=== PATIENT | male | born 1965 | race Caucasian/White ===

== ENCOUNTER → 2019-09-18 | Outpatient (CLI) | payer MEDICARE, SELFPAY | DX: Z48.22 Encounter for aftercare following kidney transplant (principal); Z79.899 Other long term (current) drug therapy | CPT/HCPCS: 36415; 80069; 80197; 81003; 82570; 83735; 84156; 85025; 87497; 87799 ×2 ==

== ENCOUNTER 2019-09-28 09:40 | Outpatient (CLI) | payer MEDICARE, SELFPAY ==
--- NOTE | 2019-09-28 | US_ITS ---
WS: [id number] RIGHT UPPER QUADRANT ULTRASOUND HISTORY: RUQ PAIN COMPARISON: None available. Liver: 15.2 cm in length. Normal size and echogenicity with no intrahepatic dilatation. No mass. Gallbladder: Normally distended gallbladder with no stones or wall thickening. CBD: 3.1 mm Pancreas: Normal size and echogenicity. Right kidney: 7.6 cm in length. Normal echogenicity with no mass or hydronephrosis. Aorta and IVC: Unremarkable. No ascites. US/US abdomen limited [id number] IMPRESSION: Normal RIGHT upper quadrant ultrasound.
== END 2019-09-28 09:41 | disposition home or self-care (01) ==
LOC: RADOUTREAD 11:38
PROVIDERS: Visit Provider Physician Assistant
DX: R10.11 Right upper quadrant pain (principal)

== ENCOUNTER 2019-10-02 08:35 | Outpatient (CLI) | payer MEDICARE, SELFPAY ==
[2019-10-02 09:10] LABS: Basophils % 0.6 %; Eosinophils # 0.1 10^3/uL (0.0-0.8); Eosinophils % 1.1 %; Hematocrit 40.4 % (42.0-52.0); Hemoglobin 13.2 g/dL (11.7-16.6); Lymphocytes # 0.8 10^3/uL (0.8-4.8); Lymphocytes % 10.8 %; Mean Corpuscular HGB Conc 32.7 g/dL (30.0-36.0); Mean Corpuscular Hemoglobin 31.6 pg (28.0-34.0); Mean Corpuscular Volume 96.7 fL (80-94); Mean Platelet Volume 8.9 fL (7.4-10.4); Monocytes % 13.4 %; Neutrophils # 5.1 10^3/uL (1.8-7.7); Neutrophils % 71.7 %; Nucleated Red Blood Cells % 0 %; Platelet Count 306 10^3/cmm (130-400); Red Blood Count 4.18 10^6/uL (4.1-5.3); Red Cell Distribution Width 13.2 % (12.1-15.1); White Blood Count 7.1 10^3/uL (4.0-10.0)
[2019-10-02 09:24] LABS: Albumin Level 4.6 g/dL (3.5-5.2); Anion Gap 14.6 (5-19); Blood Urea Nitrogen 24 mg/dL (6-20); Calcium 10.1 mg/Dl (8.6-10.0); Carbon Dioxide 25 mmol/L (22-29); Chloride 102 mmol/L (98-107); Glucose 96 mg/dL (74-109); Magnesium 1.7 mg/dL (1.7-2.3); Phosphorus 3.1 mg/dL (2.5-4.5); Potassium 4.6 mmol/L (3.5-5.1); Sodium 137 mmol/L (136-145)
== END 2019-10-02 08:36 | disposition home or self-care (01) ==
LOC: LAB 08:40
PROVIDERS: PCP Physician Assistant; Visit Provider Transplant Surgery
DX: Z48.22 Encounter for aftercare following kidney transplant (principal); Z79.899 Other long term (current) drug therapy; Z94.0 Kidney transplant status
CPT/HCPCS: 80069; 80197; 83735; 85025

== ENCOUNTER 2019-10-08 09:57 | Outpatient (CLI) | payer MEDICARE, SELFPAY ==
[2019-10-08 10:20] LABS: Add Urine Microscopic? NO
[2019-10-08 10:23] LABS: Basophils % 0.5 %; Eosinophils # 0.1 10^3/uL (0.0-0.8); Eosinophils % 1.5 %; Hematocrit 42.1 % (42.0-52.0); Hemoglobin 13.9 g/dL (11.7-16.6); Lymphocytes # 0.6 10^3/uL (0.8-4.8); Lymphocytes % 9.7 %; Mean Corpuscular Hemoglobin 32.6 pg (28.0-34.0); Mean Corpuscular Volume 98.8 fL (80-94); Mean Platelet Volume 9.2 fL (7.4-10.4); Monocytes # 0.8 10^3/uL (0.2-0.9); Monocytes % 12.8 %; Neutrophils # 4.7 10^3/uL (1.8-7.7); Neutrophils % 72.4 %; Nucleated Red Blood Cells % 0 %; Platelet Count 295 10^3/cmm (130-400); Red Blood Count 4.26 10^6/uL (4.1-5.3); Red Cell Distribution Width 12.8 % (12.1-15.1); White Blood Count 6.5 10^3/uL (4.0-10.0)
[2019-10-08 11:00] LABS: Bilirubin Urine Neg (NEGATIVE); Blood Urine Neg (Negative); Glucose Urine UA Norm (Normal); Ketones Urine Negative (Negative); Leukocyte Esterase Urine Negative (Negative); Nitrate Urine Negative (Negative); Protein Urine Neg (Negative); Specific Gravity, Urine 1.015 (1.005-1.030); Urine Appearance Clear (CLEAR); Urine Color Yellow (Yellow); Urobilinogen Urine Norm (Negative)
[2019-10-08 11:02] LABS: Albumin Level 4.5 g/dL (3.5-5.2); Anion Gap 13.2 (5-19); Blood Urea Nitrogen 19 mg/dL (6-20); Calcium 10.2 mg/Dl (8.6-10.0); Carbon Dioxide 28 mmol/L (22-29); Chloride 100 mmol/L (98-107); Glucose 90 mg/dL (74-109); Magnesium 1.6 mg/dL (1.7-2.3); Phosphorus 2.7 mg/dL (2.5-4.5); Potassium 4.2 mmol/L (3.5-5.1); Sodium 137 mmol/L (136-145)
[2019-10-08 11:33] LABS: Urine Creatinine 82 mg/dL (39-259); Urine Protein Random 4 mg/dL
[2019-10-08 11:35] LABS: UPRO/UCREAT Ratio 0.05 mg/mg CR
[2019-10-10 13:47] LABS: Cytomegalovirus Antibody (IGG) <0.60 U/mL; Cytomegalovirus Antibody (IGM) <30.00 AU/mL
[2019-10-11 16:57] LABS: Urine BK Virus DNA Quant NO DNA DETECTED copies/mL
== END 2019-10-08 09:58 | disposition home or self-care (01) ==
LOC: LAB 10:03
PROVIDERS: PCP Physician Assistant; Visit Provider Internal Medicine Nephrology
DX: Z48.22 Encounter for aftercare following kidney transplant (principal); Z79.899 Other long term (current) drug therapy
CPT/HCPCS: 36415; 80069; 80197; 81003; 82570; 83735; 84156; 85025; 87799

== ENCOUNTER 2019-10-17 09:13 | Outpatient (CLI) | payer MEDICARE, SELFPAY ==
[2019-10-17 09:45] LABS: Add Urine Microscopic? NO
[2019-10-17 09:46] LABS: Basophils % 0.4 %; Eosinophils # 0.1 10^3/uL (0.0-0.8); Eosinophils % 1.9 %; Hematocrit 40.4 % (42.0-52.0); Hemoglobin 13.2 g/dL (11.7-16.6); Lymphocytes # 0.6 10^3/uL (0.8-4.8); Mean Corpuscular HGB Conc 32.7 g/dL (30.0-36.0); Mean Corpuscular Hemoglobin 31.3 pg (28.0-34.0); Mean Corpuscular Volume 95.7 fL (80-94); Mean Platelet Volume 9.2 fL (7.4-10.4); Monocytes # 0.8 10^3/uL (0.2-0.9); Monocytes % 15.3 %; Neutrophils # 3.6 10^3/uL (1.8-7.7); Neutrophils % 69.9 %; Nucleated Red Blood Cells % 0 %; Platelet Count 302 10^3/cmm (130-400); Red Blood Count 4.22 10^6/uL (4.1-5.3); White Blood Count 5.2 10^3/uL (4.0-10.0)
[2019-10-17 09:57] LABS: Bilirubin Urine Neg (NEGATIVE); Blood Urine Neg (Negative); Glucose Urine UA Norm (Normal); Ketones Urine Negative (Negative); Leukocyte Esterase Urine Negative (Negative); Nitrate Urine Negative (Negative); Protein Urine Neg (Negative); Urine Appearance Clear (CLEAR); Urine Color Colorless (Yellow); Urobilinogen Urine Norm (Negative)
[2019-10-17 10:02] LABS: Albumin Level 4.4 g/dL (3.5-5.2); Anion Gap 13.1 (5-19); Blood Urea Nitrogen 17 mg/dL (6-20); Calcium 9.9 mg/dL (8.5-10.5); Carbon Dioxide 26 mmol/L (22-29); Chloride 101 mmol/L (98-107); Glucose 96 mg/dL (74-109); Magnesium 1.8 mg/dL (1.7-2.3); Phosphorus 2.7 mg/dL (2.5-4.5); Potassium 4.1 mmol/L (3.5-5.1); Sodium 136 mmol/L (136-145)
[2019-10-17 10:08] LABS: Urine Creatinine 32 mg/dL (39-259); Urine Protein Random 4 mg/dL
[2019-10-17 10:17] LABS: UPRO/UCREAT Ratio 0.13 mg/mg CR
[2019-10-20 12:53] LABS: BK VIRUS DNA, QN PCR NO DNA DETECTED copies/mL; SOURCE NOT GIVEN
[2019-10-20 16:27] LABS: Urine BK Virus DNA Quant NO DNA DETECTED copies/mL
[2019-10-21 07:07] LABS: CMV DNA By PCR <200 IU/mL; CMV DNA, QN PCR <2.30 Log IU/mL; SOURCE WHOLE BLOOD
== END 2019-10-17 09:14 | disposition home or self-care (01) ==
LOC: LAB 09:20
PROVIDERS: Family Provider Internal Medicine Nephrology; PCP Physician Assistant; Visit Provider Internal Medicine Nephrology
DX: Z48.22 Encounter for aftercare following kidney transplant (principal); Z79.899 Other long term (current) drug therapy; Z94.0 Kidney transplant status
CPT/HCPCS: 36415; 80069; 80197; 81003; 82570; 83735; 84156; 85025; 87798; 87799

== ENCOUNTER 2019-11-22 08:27 | Outpatient (CLI) | payer MEDICARE, SELFPAY ==
[2019-11-22 09:10] LABS: Add Urine Microscopic? NO
[2019-11-22 09:12] LABS: Bilirubin Urine Neg (NEGATIVE); Blood Urine Neg (Negative); Glucose Urine UA Norm (Normal); Ketones Urine Negative (Negative); Nitrate Urine Negative (Negative); Protein Urine Neg (Negative); Specific Gravity, Urine 1.015 (1.005-1.030); Urine Appearance Clear (CLEAR); Urine Color Yellow (Yellow); pH Urine 5 (5-7)
[2019-11-22 09:13] LABS: Basophils # 0.1 10^3/uL (0.0-0.1); Basophils % 0.9 %; Eosinophils # 0.1 10^3/uL (0.0-0.8); Eosinophils % 1.7 %; Hematocrit 41.9 % (42.0-52.0); Hemoglobin 13.4 g/dL (11.7-16.6); Leukocyte Esterase Urine Negative (Negative); Lymphocytes # 0.7 10^3/uL (0.8-4.8); Lymphocytes % 12.2 %; Mean Corpuscular Hemoglobin 30.5 pg (28.0-34.0); Mean Corpuscular Volume 95.2 fL (80-94); Mean Platelet Volume 9.3 fL (7.4-10.4); Monocytes # 0.8 10^3/uL (0.2-0.9); Monocytes % 13.1 %; Neutrophils # 4.2 10^3/uL (1.8-7.7); Neutrophils % 71.8 %; Nucleated Red Blood Cells % 0 %; Platelet Count 312 10^3/cmm (130-400); Red Cell Distribution Width 11.9 % (12.1-15.1); Urobilinogen Urine Norm (Negative); White Blood Count 5.8 10^3/uL (4.0-10.0)
[2019-11-22 09:27] LABS: Albumin Level 4.2 g/dL (3.5-5.2); Blood Urea Nitrogen 14 mg/dL (6-20); Calcium 9.8 mg/dL (8.5-10.5); Carbon Dioxide 27 mmol/L (22-29); Chloride 101 mmol/L (98-107); Glomerular Filtration Rate 62.9 mL/min (90-130); Glucose 97 mg/dL (65-115); Magnesium 1.7 mg/dL (1.7-2.3); Sodium 137 mmol/L (136-145); Urine Creatinine 85 mg/dL (39-259); Urine Protein Random 4 mg/dL
[2019-11-22 09:29] LABS: UPRO/UCREAT Ratio 0.05 mg/mg CR
[2019-11-24 22:45] LABS: Urine BK Virus DNA Quant NO DNA DETECTED copies/mL
[2019-11-25 06:30] LABS: BK VIRUS DNA, QN PCR NO DNA DETECTED copies/mL; SOURCE WHOLE BLOOD
[2019-11-25 07:25] LABS: CMV DNA By PCR <200 IU/mL; CMV DNA, QN PCR <2.30 Log IU/mL; SOURCE WHOLE BLOOD
== END 2019-11-22 08:28 | disposition home or self-care (01) ==
LOC: LAB 08:41
PROVIDERS: PCP Physician Assistant; Visit Provider Internal Medicine Nephrology
DX: Z48.22 Encounter for aftercare following kidney transplant (principal); Z79.899 Other long term (current) drug therapy; Z94.0 Kidney transplant status
CPT/HCPCS: 36415; 80069; 80197; 81003; 82570; 83735; 84156; 85025; 87798; 87799

== ENCOUNTER 2019-12-10 09:06 | Outpatient (CLI) | payer MEDICARE, SELFPAY ==
[2019-12-10 09:41] LABS: Basophils % 0.6 %; Eosinophils # 0.1 10^3/uL (0.0-0.8); Eosinophils % 1.1 %; Hematocrit 45.5 % (42.0-52.0); Hemoglobin 14.6 g/dL (11.7-16.6); Lymphocytes # 0.8 10^3/uL (0.8-4.8); Lymphocytes % 12.3 %; Mean Corpuscular HGB Conc 32.1 g/dL (30.0-36.0); Mean Corpuscular Hemoglobin 30.7 pg (28.0-34.0); Mean Corpuscular Volume 95.6 fL (80-94); Mean Platelet Volume 9.3 fL (7.4-10.4); Monocytes # 0.8 10^3/uL (0.2-0.9); Monocytes % 12.4 %; Neutrophils # 4.7 10^3/uL (1.8-7.7); Nucleated Red Blood Cells % 0 %; Platelet Count 322 10^3/cmm (130-400); Red Blood Count 4.76 10^6/uL (4.1-5.3); Red Cell Distribution Width 11.6 % (12.1-15.1); White Blood Count 6.4 10^3/uL (4.0-10.0)
[2019-12-10 09:50] LABS: Albumin Level 4.5 g/dL (3.5-5.2); Anion Gap 12.2 (5-19); Blood Urea Nitrogen 21 mg/dL (6-20); Carbon Dioxide 27 mmol/L (22-29); Chloride 101 mmol/L (98-107); Glomerular Filtration Rate 52.6 mL/min (90-130); Glucose 102 mg/dL (65-115); Phosphorus 2.9 mg/dL (2.5-4.5); Potassium 4.2 mmol/L (3.5-5.1); Sodium 136 mmol/L (136-145)
== END 2019-12-10 09:07 | disposition home or self-care (01) ==
LOC: LAB 09:12
PROVIDERS: PCP Physician Assistant; Visit Provider Internal Medicine Nephrology
DX: Z94.0 Kidney transplant status (principal); Z79.899 Other long term (current) drug therapy
CPT/HCPCS: 36415; 80069; 80197; 85025

== ENCOUNTER 2019-12-26 09:17 | Outpatient (CLI) | payer MEDICARE, SELFPAY ==
[2019-12-26 09:46] LABS: Basophils % 0.4 %; Eosinophils # 0.1 10^3/uL (0.0-0.8); Eosinophils % 1.3 %; Hematocrit 42.8 % (42.0-52.0); Hemoglobin 13.8 g/dL (11.7-16.6); Lymphocytes # 0.9 10^3/uL (0.8-4.8); Lymphocytes % 12.6 %; Mean Corpuscular HGB Conc 32.2 g/dL (30.0-36.0); Mean Corpuscular Hemoglobin 31.3 pg (28.0-34.0); Mean Corpuscular Volume 97.1 fL (80-94); Mean Platelet Volume 9.4 fL (7.4-10.4); Monocytes # 0.8 10^3/uL (0.2-0.9); Monocytes % 11.9 %; Neutrophils # 4.9 10^3/uL (1.8-7.7); Neutrophils % 73.2 %; Nucleated Red Blood Cells % 0 %; Platelet Count 302 10^3/cmm (130-400); Red Blood Count 4.41 10^6/uL (4.1-5.3); Red Cell Distribution Width 11.7 % (12.1-15.1); White Blood Count 6.8 10^3/uL (4.0-10.0)
[2019-12-26 09:54] LABS: Bilirubin Urine Neg (NEGATIVE); Blood Urine Neg (Negative); Glucose Urine UA Norm (Normal); Ketones Urine Negative (Negative); Leukocyte Esterase Urine Negative (Negative); Nitrate Urine Negative (Negative); Protein Urine Neg (Negative); RBC Urine RARE /hpf (0-2); Urine Appearance Clear (CLEAR); Urine Color Yellow (Yellow); Urobilinogen Urine Norm (Negative); pH Urine 5 (5-7)
[2019-12-26 09:55] LABS: Add Urine Culture? No; Squamous Epithelial Cell Urine 0-4 (0-5); WBC Urine RARE /hpf (0-5)
[2019-12-26 10:02] LABS: Albumin Level 4.3 g/dL (3.5-5.2); Blood Urea Nitrogen 25 mg/dL (6-20); Calcium 9.6 mg/dL (8.5-10.5); Carbon Dioxide 25 mmol/L (22-29); Chloride 100 mmol/L (98-107); Glomerular Filtration Rate 39.4 mL/min (90-130); Glucose 115 mg/dL (65-115); Magnesium 1.6 mg/dL (1.7-2.3); Phosphorus 3.3 mg/dL (2.5-4.5); Sodium 137 mmol/L (136-145)
[2019-12-26 10:05] LABS: Urine Creatinine 233 mg/dL (39-259); Urine Protein Random 10 mg/dL
[2019-12-26 10:07] LABS: UPRO/UCREAT Ratio 0.04 mg/mg CR
[2019-12-29 15:55] LABS: CMV DNA By PCR <200 IU/mL; CMV DNA, QN PCR <2.30 Log IU/mL; SOURCE WHOLE BLOOD
[2020-01-02 10:31] LABS: BK VIRUS DNA, QN PCR NO DNA DETECTED copies/mL; SOURCE NOT GIVEN
[2020-01-02 14:11] LABS: Urine BK Virus DNA Quant NO DNA DETECTED copies/mL
== END 2019-12-26 09:18 | disposition home or self-care (01) ==
LOC: LAB 09:22
PROVIDERS: PCP Physician Assistant; Visit Provider Internal Medicine Nephrology
DX: Z48.22 Encounter for aftercare following kidney transplant (principal); Z79.899 Other long term (current) drug therapy
CPT/HCPCS: 36415; 80069; 80197; 81001; 82570; 83735; 84156; 85025; 87496; 87798; 87799

== ENCOUNTER 2020-01-25 08:56 | Outpatient (CLI) | payer MEDICARE, SELFPAY ==
[2020-01-25 09:39] LABS: Add Urine Microscopic? NO
[2020-01-25 09:57] LABS: Hematocrit 40.4 % (42.0-52.0); Hemoglobin 13.1 g/dL (11.7-16.6); Mean Corpuscular HGB Conc 32.4 g/dL (30.0-36.0); Mean Corpuscular Volume 95.5 fL (80-94); Mean Platelet Volume 9.3 fL (7.4-10.4); Platelet Count 322 10^3/cmm (130-400); Red Blood Count 4.23 10^6/uL (4.1-5.3); Red Cell Distribution Width 12.2 % (12.1-15.1); White Blood Count 6.8 10^3/uL (4.0-10.0)
[2020-01-25 10:28] LABS: Albumin Level 4.4 g/dL (3.5-5.2); Anion Gap 13.8 (5-19); Blood Urea Nitrogen 18 mg/dL (6-20); Calcium 9.5 mg/dL (8.5-10.5); Carbon Dioxide 27 mmol/L (22-29); Chloride 101 mmol/L (98-107); Glomerular Filtration Rate 48.6 mL/min (90-130); Glucose 100 mg/dL (65-115); Magnesium 1.9 mg/dL (1.7-2.3); Phosphorus 2.5 mg/dL (2.5-4.5); Potassium 3.8 mmol/L (3.5-5.1); Sodium 138 mmol/L (136-145)
[2020-01-25 10:44] LABS: Bilirubin Urine Neg (NEGATIVE); Blood Urine Neg (Negative); Glucose Urine UA Norm (Normal); Ketones Urine Negative (Negative); Leukocyte Esterase Urine Negative (Negative); Nitrate Urine Negative (Negative); Protein Urine Neg (Negative); Urine Appearance Clear (CLEAR); Urine Color Yellow (Yellow); Urobilinogen Urine Norm (Negative); pH Urine 5 (5-7)
[2020-01-25 10:45] LABS: Add Urine Culture? No
[2020-01-25 10:58] LABS: Urine Creatinine 97 mg/dL (39-259); Urine Protein Random 4 mg/dL
[2020-01-25 11:00] LABS: UPRO/UCREAT Ratio 0.04 mg/mg CR
[2020-01-25 12:05] LABS: Absolute Eosinophils 0.1 10^3/cmm (0.0-0.7); Band Neutrophils Absolute 0.7 10^3/cmm (0.0-1.2); Eosinophils 2 %; Lymphocytes 15 %; Monocytes Absolute 0.8 10^3/cmm (0.1-0.6); Platelet Estimate Normal (Normal); Segmented Neutrophils 60 %; Total Cells Counted 100 (0-100)
[2020-02-01 00:50] LABS: BK VIRUS DNA, QN PCR NO DNA DETECTED copies/mL; SOURCE BLOOD
[2020-02-01 02:39] LABS: CMV DNA By PCR <200 IU/mL; CMV DNA, QN PCR <2.30 Log IU/mL; SOURCE BLOOD
[2020-02-01 05:25] LABS: Urine BK Virus DNA Quant NO DNA DETECTED copies/mL
== END 2020-01-25 08:57 | disposition home or self-care (01) ==
LOC: LAB 09:01
PROVIDERS: Visit Provider Internal Medicine Nephrology
DX: Z48.22 Encounter for aftercare following kidney transplant (principal); Z79.899 Other long term (current) drug therapy
CPT/HCPCS: 36415; 80069; 80197; 81001; 81003; 82570; 83735; 84156; 85007; 85027; 87496; 87798; 87799

== ENCOUNTER 2020-02-26 09:29 | Outpatient (CLI) | payer MEDICARE, SELFPAY ==
[2020-02-26 10:17] LABS: Basophils % 0.3 %; Eosinophils # 0.1 10^3/uL (0.0-0.8); Eosinophils % 0.7 %; Hematocrit 38.1 % (42.0-52.0); Hemoglobin 11.9 g/dL (11.7-16.6); Lymphocytes # 0.8 10^3/uL (0.8-4.8); Lymphocytes % 8.1 %; Mean Corpuscular HGB Conc 31.2 g/dL (30.0-36.0); Mean Corpuscular Hemoglobin 29.8 pg (28.0-34.0); Mean Corpuscular Volume 95.3 fL (80-94); Mean Platelet Volume 9.5 fL (7.4-10.4); Monocytes % 10.2 %; Neutrophils # 6.8 10^3/uL (1.8-7.7); Neutrophils % 72.1 %; Nucleated Red Blood Cells % 0 %; Platelet Count 344 10^3/cmm (130-400); Red Cell Distribution Width 12.2 % (12.1-15.1); White Blood Count 9.5 10^3/uL (4.0-10.0)
[2020-02-26 10:26] LABS: Add Urine Culture? No; Bacteria Urine TRACE; Bilirubin Urine Neg (NEGATIVE); Blood Urine Neg (Negative); Glucose Urine UA Norm (Normal); Ketones Urine Negative (Negative); Leukocyte Esterase Urine Negative (Negative); Nitrate Urine Negative (Negative); Protein Urine Neg (Negative); Urine Appearance Clear (CLEAR); Urine Color Straw (Yellow); Urobilinogen Urine Norm (Negative); WBC Urine 0-4 /hpf (0-5); pH Urine 5 (5-7)
[2020-02-26 10:31] LABS: Albumin Level 4.3 g/dL (3.5-5.2); Anion Gap 15.6 (5-19); Blood Urea Nitrogen 26 mg/dL (6-20); Calcium 9.8 mg/dL (8.5-10.5); Carbon Dioxide 25 mmol/L (22-29); Chloride 98 mmol/L (98-107); Glomerular Filtration Rate 48.6 mL/min (90-130); Glucose 99 mg/dL (65-115); Magnesium 1.6 mg/dL (1.7-2.3); Phosphorus 3.2 mg/dL (2.5-4.5); Potassium 3.6 mmol/L (3.5-5.1); Sodium 135 mmol/L (136-145)
[2020-02-26 10:36] LABS: Urine Creatinine 55 mg/dL (39-259); Urine Protein Random 4 mg/dL
[2020-02-26 10:40] LABS: UPRO/UCREAT Ratio 0.07 mg/mg CR
[2020-02-26 11:05] LABS: Slide Review Slide Review Perform
[2020-02-29 08:17] LABS: CMV DNA By PCR <200 IU/mL; CMV DNA, QN PCR <2.30 Log IU/mL; SOURCE NOT GIVEN
[2020-02-29 11:05] LABS: BK VIRUS DNA, QN PCR NO DNA DETECTED copies/mL; SOURCE NOT GIVEN
[2020-03-01 09:41] LABS: Urine BK Virus DNA Quant NO DNA DETECTED copies/mL
== END 2020-02-26 09:30 | disposition home or self-care (01) ==
LOC: LAB 09:33
PROVIDERS: Visit Provider Internal Medicine
DX: Z48.22 Encounter for aftercare following kidney transplant (principal); Z79.899 Other long term (current) drug therapy
CPT/HCPCS: 36415; 80069; 80197; 81001; 82570; 83735; 84156; 85025; 87496; 87798; 87799

== ENCOUNTER 2020-03-12 08:34 | Outpatient (CLI) | payer MEDICARE, SELFPAY ==
[2020-03-12 09:22] LABS: Albumin Level 4.5 g/dL (3.5-5.2); Anion Gap 13.9 (5-19); Blood Urea Nitrogen 19 mg/dL (6-20); Calcium 9.7 mg/dL (8.5-10.5); Carbon Dioxide 27 mmol/L (22-29); Chloride 99 mmol/L (98-107); Glomerular Filtration Rate 62.9 mL/min (90-130); Glucose 103 mg/dL (65-115); Phosphorus 2.7 mg/dL (2.5-4.5); Potassium 3.9 mmol/L (3.5-5.1); Sodium 136 mmol/L (136-145)
== END 2020-03-12 08:35 | disposition home or self-care (01) ==
LOC: LAB 08:41
PROVIDERS: PCP Physician Assistant; Visit Provider Internal Medicine
DX: Z48.22 Encounter for aftercare following kidney transplant (principal); Z79.899 Other long term (current) drug therapy
CPT/HCPCS: 36415; 80069; 80197

== ENCOUNTER 2020-03-26 08:42 | Outpatient (CLI) | payer MEDICARE, SELFPAY ==
[2020-03-26 09:10] LABS: Hematocrit 39.4 % (42.0-52.0); Hemoglobin 12.2 g/dL (11.7-16.6); Mean Corpuscular Hemoglobin 30.5 pg (28.0-34.0); Mean Corpuscular Volume 98.5 fL (80-94); Mean Platelet Volume 9.1 fL (7.4-10.4); Nucleated Red Blood Cells % 0 %; Platelet Count 370 10^3/cmm (130-400); Red Cell Distribution Width 12.5 % (12.1-15.1); White Blood Count 9.2 10^3/uL (4.0-10.0)
[2020-03-26 09:30] LABS: Add Urine Microscopic? NO
[2020-03-26 09:31] LABS: Albumin Level 4.2 g/dL (3.5-5.2); Anion Gap 14.1 (5-19); Blood Urea Nitrogen 18 mg/dL (6-20); Calcium 9.4 mg/dL (8.5-10.5); Carbon Dioxide 24 mmol/L (22-29); Chloride 102 mmol/L (98-107); Glomerular Filtration Rate 69.5 mL/min (90-130); Glucose 95 mg/dL (65-115); Magnesium 1.8 mg/dL (1.7-2.3); Phosphorus 2.6 mg/dL (2.5-4.5); Potassium 4.1 mmol/L (3.5-5.1); Sodium 136 mmol/L (136-145)
[2020-03-26 10:08] LABS: Slide Review Slide Review Perform
[2020-03-26 10:46] LABS: Absolute Neutrophil 7.3 10^3/cmm (1.4-6.5); Band Neutrophils Absolute 3.2 10^3/cmm (0.0-1.2); Eosinophils 1 %; Lymphocytes 9 %; Platelet Estimate Normal (Normal); Segmented Neutrophils 44 %; Total Cells Counted 100 (0-100)
[2020-03-26 10:55] LABS: Urine Appearance Clear (CLEAR); Urine Color Yellow (Yellow)
[2020-03-26 10:56] LABS: Bilirubin Urine Neg (NEGATIVE); Blood Urine Neg (Negative); Glucose Urine UA Norm (Normal); Ketones Urine Negative (Negative); Leukocyte Esterase Urine Negative (Negative); Nitrate Urine Negative (Negative); Protein Urine Neg (Negative); Urobilinogen Urine Norm (Negative); pH Urine 5 (5-7)
[2020-03-26 11:22] LABS: Urine Creatinine 201 mg/dL (39-259); Urine Protein Random 12 mg/dL
[2020-03-26 11:35] LABS: UPRO/UCREAT Ratio 0.06 mg/mg CR
[2020-03-31 23:50] LABS: CMV DNA By PCR <200 IU/mL; CMV DNA, QN PCR <2.30 Log IU/mL; SOURCE PLASMA
[2020-04-01 07:25] LABS: BK VIRUS DNA, QN PCR NO DNA DETECTED copies/mL; SOURCE PLASMA
== END 2020-03-26 08:43 | disposition home or self-care (01) ==
LOC: LAB 08:46
PROVIDERS: PCP Physician Assistant; Visit Provider Internal Medicine
DX: Z48.22 Encounter for aftercare following kidney transplant (principal); Z79.899 Other long term (current) drug therapy
CPT/HCPCS: 36415; 80069; 80197; 81003; 82570; 83735; 84156; 85007; 85025; 87496; 87798

== ENCOUNTER 2020-04-28 09:38 | Outpatient (CLI) | payer MEDICARE, SELFPAY ==
[2020-04-28 10:01] LABS: Add Urine Microscopic? NO
[2020-04-28 10:08] LABS: Basophils % 0.7 %; Eosinophils # 0.1 10^3/uL (0.0-0.8); Eosinophils % 1.2 %; Hemoglobin 13.7 g/dL (11.7-16.6); Lymphocytes # 0.8 10^3/uL (0.8-4.8); Lymphocytes % 13.3 %; Mean Corpuscular HGB Conc 31.1 g/dL (30.0-36.0); Mean Corpuscular Volume 96.5 fL (80-94); Mean Platelet Volume 8.8 fL (7.4-10.4); Monocytes # 0.8 10^3/uL (0.2-0.9); Monocytes % 14.2 %; Neutrophils # 4.02 10^3/uL (1.8-7.7); Neutrophils % 69.7 %; Nucleated Red Blood Cells % 0 %; Platelet Count 314 10^3/cmm (130-400); Red Blood Count 4.56 10^6/uL (4.1-5.3); Red Cell Distribution Width 12.1 % (12.1-15.1); White Blood Count 5.8 10^3/uL (4.0-10.0)
[2020-04-28 10:22] LABS: Albumin Level 4.3 g/dL (3.5-5.2); Anion Gap 11.9 (5-19); Blood Urea Nitrogen 16 mg/dL (6-20); Calcium 8.8 mg/dL (8.5-10.5); Carbon Dioxide 25 mmol/L (22-29); Chloride 105 mmol/L (98-107); Glomerular Filtration Rate 62.9 mL/min (90-130); Glucose 94 mg/dL (65-115); Magnesium 1.7 mg/dL (1.7-2.3); Phosphorus 2.5 mg/dL (2.5-4.5); Potassium 3.9 mmol/L (3.5-5.1); Sodium 138 mmol/L (136-145)
[2020-04-28 10:25] LABS: Blood Urine Neg (Negative); Glucose Urine UA Norm (Normal); Ketones Urine Negative (Negative); Nitrate Urine Negative (Negative); Protein Urine Neg (Negative); Specific Gravity, Urine 1.005 (1.005-1.030); Urine Appearance Clear (CLEAR); Urine Color Straw (Yellow); pH Urine 5 (5-7)
[2020-04-28 10:26] LABS: Bilirubin Urine Neg (NEGATIVE); Leukocyte Esterase Urine Negative (Negative); Urobilinogen Urine Norm (Negative)
[2020-04-30 23:40] LABS: BK VIRUS DNA, QN PCR NO DNA DETECTED copies/mL; SOURCE PLASMA
[2020-05-04 18:00] LABS: CMV DNA By PCR <200 IU/mL; CMV DNA, QN PCR <2.30 Log IU/mL; SOURCE WHOLE BLOOD
== END 2020-04-28 09:39 | disposition home or self-care (01) ==
LOC: LAB 09:42
PROVIDERS: PCP Physician Assistant; Visit Provider Internal Medicine
DX: Z48.22 Encounter for aftercare following kidney transplant (principal); Z79.899 Other long term (current) drug therapy
CPT/HCPCS: 36415; 80069; 80197; 81003; 83735; 85025; 87496; 87798

== ENCOUNTER 2020-05-27 08:09 | Outpatient (CLI) | payer MEDICARE, SELFPAY ==
[2020-05-27 08:40] LABS: Add Urine Microscopic? NO
[2020-05-27 09:07] LABS: Bilirubin Urine Neg (NEGATIVE); Blood Urine Neg (Negative); Glucose Urine UA Norm (Normal); Ketones Urine Negative (Negative); Leukocyte Esterase Urine Negative (Negative); Nitrate Urine Negative (Negative); Protein Urine Neg (Negative); Urine Appearance Clear (CLEAR); Urine Color Yellow (Yellow); Urobilinogen Urine Norm (Negative); pH Urine 5 (5-7)
[2020-05-27 09:08] LABS: Basophils % 0.6 %; Eosinophils # 0.1 10^3/uL (0.0-0.8); Eosinophils % 1.1 %; Hemoglobin 14.1 g/dL (11.7-16.6); Lymphocytes # 0.8 10^3/uL (0.8-4.8); Mean Corpuscular HGB Conc 31.3 g/dL (30.0-36.0); Mean Corpuscular Hemoglobin 29.8 pg (28.0-34.0); Mean Corpuscular Volume 95.1 fL (80-94); Mean Platelet Volume 9.4 fL (7.4-10.4); Monocytes # 0.8 10^3/uL (0.2-0.9); Monocytes % 14.6 %; Neutrophils # 3.76 10^3/uL (1.8-7.7); Neutrophils % 69.5 %; Nucleated Red Blood Cells % 0 %; Platelet Count 322 10^3/cmm (130-400); Red Blood Count 4.73 10^6/uL (4.1-5.3); Red Cell Distribution Width 12.1 % (12.1-15.1); White Blood Count 5.4 10^3/uL (4.0-10.0)
[2020-05-27 09:33] LABS: Urine Creatinine 151 mg/dL (39-259); Urine Protein Random 9 mg/dL
[2020-05-27 09:33] LABS: Albumin Level 4.4 g/dL (3.5-5.2); Anion Gap 13.9 (5-19); Blood Urea Nitrogen 15 mg/dL (6-20); Calcium 9.2 mg/dL (8.5-10.5); Carbon Dioxide 26 mmol/L (22-29); Chloride 101 mmol/L (98-107); Glomerular Filtration Rate 69.2 mL/min (90-130); Glucose 104 mg/dL (65-115); Magnesium 1.7 mg/dL (1.7-2.3); Phosphorus 2.9 mg/dL (2.5-4.5); Potassium 3.9 mmol/L (3.5-5.1); Sodium 137 mmol/L (136-145)
[2020-05-27 09:44] LABS: UPRO/UCREAT Ratio 0.06 mg/mg CR
[2020-05-30 01:03] LABS: BK VIRUS DNA, QN PCR NO DNA DETECTED copies/mL; CMV DNA By PCR <200 IU/mL; CMV DNA, QN PCR <2.30 Log IU/mL; SOURCE WHOLE BLOOD
== END 2020-05-27 08:10 | disposition home or self-care (01) ==
PROVIDERS: PCP Physician Assistant; Visit Provider Internal Medicine
DX: Z48.22 Encounter for aftercare following kidney transplant (principal); Z79.899 Other long term (current) drug therapy
CPT/HCPCS: 80069; 80197; 81003; 82570; 83735; 84156; 85025; 87496; 87798; 87799

== ENCOUNTER 2020-06-05 08:04 | Outpatient (CLI) | payer MEDICARE, SELFPAY ==
[2020-06-05 08:40] LABS: Albumin Level 4.4 g/dL (3.5-5.2); Blood Urea Nitrogen 15 mg/dL (6-20); Calcium 9.6 mg/dL (8.5-10.5); Carbon Dioxide 27 mmol/L (22-29); Chloride 100 mmol/L (98-107); Glomerular Filtration Rate 62.6 mL/min (90-130); Glucose 99 mg/dL (65-115); Sodium 136 mmol/L (136-145)
== END 2020-06-05 08:05 | disposition home or self-care (01) ==
LOC: LAB 08:09
PROVIDERS: PCP Physician Assistant; Visit Provider Internal Medicine Nephrology
DX: Z48.22 Encounter for aftercare following kidney transplant (principal); Z79.899 Other long term (current) drug therapy
CPT/HCPCS: 36415; 80069; 80197

== ENCOUNTER 2020-06-27 09:09 | Outpatient (CLI) | payer MEDICARE, SELFPAY ==
[2020-06-27 09:41] LABS: Add Urine Microscopic? NO
[2020-06-27 09:43] LABS: Basophils % 0.3 %; Eosinophils # 0.1 10^3/uL (0.0-0.8); Eosinophils % 0.9 %; Hematocrit 47.1 % (42.0-52.0); Hemoglobin 14.9 g/dL (11.7-16.6); Lymphocytes # 0.8 10^3/uL (0.8-4.8); Lymphocytes % 9.1 %; Mean Corpuscular HGB Conc 31.6 g/dL (30.0-36.0); Mean Corpuscular Hemoglobin 29.8 pg (28.0-34.0); Mean Corpuscular Volume 94.2 fL (80-94); Mean Platelet Volume 9.3 fL (7.4-10.4); Monocytes % 11.2 %; Neutrophils # 6.77 10^3/uL (1.8-7.7); Neutrophils % 78.3 %; Nucleated Red Blood Cells % 0 %; Platelet Count 341 10^3/cmm (130-400); Red Cell Distribution Width 12.4 % (12.1-15.1); White Blood Count 8.7 10^3/uL (4.0-10.0)
[2020-06-27 09:49] LABS: Bilirubin Urine Neg (Negative); Blood Urine Neg (Negative); Glucose Urine UA Norm (Normal); Ketones Urine Negative (Negative); Leukocyte Esterase Urine Negative (Negative); Nitrate Urine Negative (Negative); Protein Urine Neg (Negative); Urine Appearance Clear (CLEAR); Urine Color Yellow (Yellow); Urobilinogen Urine Norm (Negative); pH Urine 5 (5-7)
[2020-06-27 10:00] LABS: Albumin Level 4.4 g/dL (3.5-5.2); Blood Urea Nitrogen 12 mg/dL (6-20); Calcium 9.4 mg/dL (8.5-10.5); Carbon Dioxide 25 mmol/L (22-29); Chloride 101 mmol/L (98-107); Glomerular Filtration Rate 69.2 mL/min (90-130); Glucose 94 mg/dL (65-115); Magnesium 1.7 mg/dL (1.7-2.3); Phosphorus 2.8 mg/dL (2.5-4.5); Sodium 134 mmol/L (136-145)
[2020-06-27 10:15] LABS: Urine Creatinine 98 mg/dL (39-259); Urine Protein Random 7 mg/dL
[2020-06-27 10:37] LABS: UPRO/UCREAT Ratio 0.07 mg/mg CR
[2020-07-01 17:08] LABS: BK VIRUS DNA, QN PCR NO DNA DETECTED copies/mL; CMV DNA By PCR <200 IU/mL; CMV DNA, QN PCR <2.30 Log IU/mL; SOURCE PLASMA
[2020-07-01 17:38] LABS: Urine BK Virus DNA Quant NO DNA DETECTED copies/mL
== END 2020-06-27 09:10 | disposition home or self-care (01) ==
LOC: LAB 09:14
PROVIDERS: PCP Physician Assistant; Visit Provider Internal Medicine Nephrology
DX: Z48.22 Encounter for aftercare following kidney transplant (principal); Z79.899 Other long term (current) drug therapy
CPT/HCPCS: 36415; 80069; 80197; 81003; 82570; 83735; 84156; 85025; 87496; 87798; 87799

== ENCOUNTER 2020-07-28 08:26 | Outpatient (CLI) | payer MEDICARE, SELFPAY ==
[2020-07-28 09:28] LABS: Add Urine Microscopic? NO
[2020-07-28 09:42] LABS: Basophils # 0.1 10^3/uL (0.0-0.1); Basophils % 0.7 %; Eosinophils # 0.1 10^3/uL (0.0-0.8); Hematocrit 49.1 % (42.0-52.0); Hemoglobin 15.1 g/dL (11.7-16.6); Lymphocytes # 0.9 10^3/uL (0.8-4.8); Lymphocytes % 12.2 %; Mean Corpuscular HGB Conc 30.8 g/dL (30.0-36.0); Mean Corpuscular Hemoglobin 29.4 pg (28.0-34.0); Mean Corpuscular Volume 95.7 fL (80-94); Mean Platelet Volume 9.7 fL (7.4-10.4); Monocytes % 14.4 %; Neutrophils # 5.04 10^3/uL (1.8-7.7); Neutrophils % 71.3 %; Nucleated Red Blood Cells % 0 %; Platelet Count 335 10^3/cmm (130-400); Red Blood Count 5.13 10^6/uL (4.1-5.3); Red Cell Distribution Width 12.3 % (12.1-15.1); White Blood Count 7.1 10^3/uL (4.0-10.0)
[2020-07-28 10:01] LABS: Albumin Level 4.6 g/dL (3.5-5.2); Anion Gap 13.2 (5-19); Blood Urea Nitrogen 21 mg/dL (6-20); Carbon Dioxide 26 mmol/L (22-29); Chloride 102 mmol/L (98-107); Glomerular Filtration Rate 62.6 mL/min (90-130); Glucose 88 mg/dL (65-115); Magnesium 1.9 mg/dL (1.7-2.3); Potassium 4.2 mmol/L (3.5-5.1); Sodium 137 mmol/L (136-145)
[2020-07-28 10:20] LABS: Bilirubin Urine Neg (Negative); Blood Urine Neg (Negative); Glucose Urine UA Norm (Normal); Ketones Urine Negative (Negative); Leukocyte Esterase Urine Negative (Negative); Nitrate Urine Negative (Negative); Protein Urine Neg (Negative); Urine Appearance Clear (CLEAR); Urine Color Straw (Yellow); Urobilinogen Urine Norm (Negative); pH Urine 5 (5-7)
[2020-07-28 11:07] LABS: Urine Creatinine 91 mg/dL (39-259); Urine Protein Random 6 mg/dL
[2020-07-28 11:09] LABS: UPRO/UCREAT Ratio 0.07 mg/mg CR
[2020-07-31 18:29] LABS: Urine BK Virus DNA Quant NO DNA DETECTED copies/mL
[2020-08-01 07:27] LABS: BK VIRUS DNA, QN PCR NO DNA DETECTED copies/mL; SOURCE PLASMA
[2020-08-01 13:23] LABS: CMV DNA By PCR <200 IU/mL; CMV DNA, QN PCR <2.30 Log IU/mL; SOURCE BLOOD
== END 2020-07-28 08:27 | disposition home or self-care (01) ==
LOC: LAB 08:31
PROVIDERS: PCP Physician Assistant; Visit Provider Internal Medicine Nephrology
DX: Z48.22 Encounter for aftercare following kidney transplant (principal); Z79.899 Other long term (current) drug therapy
CPT/HCPCS: 36415; 80069; 80197; 81003; 82570; 83735; 84156; 85025; 87496; 87798; 87799

== ENCOUNTER 2020-08-27 08:21 | Outpatient (CLI) | payer MEDICARE, SELFPAY ==
[2020-08-27 09:02] LABS: Add Urine Microscopic? NO
[2020-08-27 09:19] LABS: Basophils # 0.1 10^3/uL (0.0-0.1); Basophils % 0.7 %; Bilirubin Urine Neg (Negative); Blood Urine Neg (Negative); Eosinophils # 0.1 10^3/uL (0.0-0.8); Eosinophils % 1.5 %; Glucose Urine UA Norm (Normal); Hematocrit 46.2 % (42.0-52.0); Hemoglobin 14.8 g/dL (11.7-16.6); Ketones Urine Negative (Negative); Leukocyte Esterase Urine Negative (Negative); Lymphocytes # 0.8 10^3/uL (0.8-4.8); Lymphocytes % 12.1 %; Mean Corpuscular Hemoglobin 29.8 pg (28.0-34.0); Mean Corpuscular Volume 93.1 fL (80-94); Mean Platelet Volume 9.4 fL (7.4-10.4); Monocytes % 14.1 %; Neutrophils # 4.85 10^3/uL (1.8-7.7); Neutrophils % 71.3 %; Nitrate Urine Negative (Negative); Nucleated Red Blood Cells % 0 %; Platelet Count 332 10^3/cmm (130-400); Protein Urine Neg (Negative); Red Blood Count 4.96 10^6/uL (4.1-5.3); Red Cell Distribution Width 12.4 % (12.1-15.1); Specific Gravity, Urine 1.015 (1.005-1.030); Urine Appearance Clear (CLEAR); Urine Color Yellow (Yellow); Urobilinogen Urine Norm (Negative); White Blood Count 6.8 10^3/uL (4.0-10.0)
[2020-08-27 09:36] LABS: Urine Creatinine 127 mg/dL (39-259); Urine Protein Random 7 mg/dL
[2020-08-27 09:37] LABS: Albumin Level 4.2 g/dL (3.5-5.2); Anion Gap 13.8 (5-19); Blood Urea Nitrogen 18 mg/dL (6-20); Calcium 9.6 mg/dL (8.5-10.5); Carbon Dioxide 25 mmol/L (22-29); Chloride 100 mmol/L (98-107); Glomerular Filtration Rate 69.2 mL/min (90-130); Glucose 87 mg/dL (65-115); Magnesium 1.7 mg/dL (1.7-2.3); Phosphorus 2.9 mg/dL (2.5-4.5); Potassium 3.8 mmol/L (3.5-5.1); Sodium 135 mmol/L (136-145)
[2020-08-27 09:38] LABS: UPRO/UCREAT Ratio 0.06 mg/mg CR
[2020-09-01 06:48] LABS: CMV DNA By PCR <200 IU/mL; CMV DNA, QN PCR <2.30 Log IU/mL; SOURCE WHOLE BLOOD
[2020-09-05 13:23] LABS: BK VIRUS DNA, QN PCR NO DNA DETECTED copies/mL; SOURCE WHOLE BLOOD
== END 2020-08-27 08:22 | disposition home or self-care (01) ==
PROVIDERS: PCP Physician Assistant; Visit Provider Internal Medicine Nephrology
DX: Z48.22 Encounter for aftercare following kidney transplant (principal); Z79.899 Other long term (current) drug therapy
CPT/HCPCS: 36415; 80069; 80197; 81003; 82570; 83735; 84156; 85025; 87086; 87496; 87798

== ENCOUNTER 2020-11-25 08:55 | Outpatient (CLI) | payer MEDICARE, SELFPAY ==
[2020-11-25 09:27] LABS: Add Urine Microscopic? NO
[2020-11-25 09:37] LABS: Bilirubin Urine Neg (Negative); Blood Urine Neg (Negative); Glucose Urine UA Norm (Normal); Ketones Urine Negative (Negative); Leukocyte Esterase Urine Negative (Negative); Nitrate Urine Negative (Negative); Protein Urine Neg (Negative); Specific Gravity, Urine 1.005 (1.005-1.030); Urine Appearance Clear (CLEAR); Urine Color Yellow (Yellow); Urobilinogen Urine Norm (Negative); pH Urine 6 (5-7)
[2020-11-25 09:39] LABS: Basophils % 0.5 %; Eosinophils # 0.1 10^3/uL (0.0-0.8); Hematocrit 47.8 % (42.0-52.0); Hemoglobin 14.9 g/dL (11.7-16.6); Lymphocytes # 0.8 10^3/uL (0.8-4.8); Lymphocytes % 13.2 %; Mean Corpuscular HGB Conc 31.2 g/dL (30.0-36.0); Mean Corpuscular Hemoglobin 29.7 pg (28.0-34.0); Mean Corpuscular Volume 95.4 fL (80-94); Mean Platelet Volume 9.4 fL (7.4-10.4); Monocytes % 16.1 %; Neutrophils # 4.16 10^3/uL (1.8-7.7); Neutrophils % 68.9 %; Nucleated Red Blood Cells % 0 %; Platelet Count 329 10^3/cmm (130-400); Red Blood Count 5.01 10^6/uL (4.1-5.3); Red Cell Distribution Width 12.2 % (12.1-15.1)
[2020-11-25 09:55] LABS: Albumin Level 4.4 g/dL (3.5-5.2); Anion Gap 11.9 (5-19); Blood Urea Nitrogen 16 mg/dL (6-20); Calcium 9.7 mg/dL (8.5-10.5); Carbon Dioxide 27 mmol/L (22-29); Chloride 101 mmol/L (98-107); Glomerular Filtration Rate 77.3 mL/min (90-130); Glucose 89 mg/dL (65-115); Magnesium 1.7 mg/dL (1.7-2.3); Phosphorus 2.9 mg/dL (2.5-4.5); Potassium 3.9 mmol/L (3.5-5.1); Sodium 136 mmol/L (136-145)
[2020-11-25 09:58] LABS: Urine Creatinine 54 mg/dL (39-259); Urine Protein Random 4 mg/dL
[2020-11-25 10:10] LABS: UPRO/UCREAT Ratio 0.07 mg/mg CR
== END 2020-11-25 08:56 | disposition home or self-care (01) ==
PROVIDERS: PCP Physician Assistant; Visit Provider Internal Medicine Nephrology
DX: Z48.22 Encounter for aftercare following kidney transplant (principal); Z79.899 Other long term (current) drug therapy
CPT/HCPCS: 36415; 80069; 81003; 82570; 83735; 84156; 85025

== ENCOUNTER 2020-12-01 08:15 | Outpatient (CLI) | payer MEDICARE, SELFPAY ==
[2020-12-04 06:07] LABS: BK VIRUS DNA, QN PCR NO DNA DETECTED copies/mL; SOURCE WHOLE BLOOD
[2020-12-04 16:32] LABS: CMV DNA By PCR <200 IU/mL; CMV DNA, QN PCR <2.30 Log IU/mL; SOURCE WHOLE BLOOD
== END 2020-12-01 08:16 | disposition home or self-care (01) ==
PROVIDERS: PCP Physician Assistant; Visit Provider Internal Medicine Nephrology
DX: Z48.22 Encounter for aftercare following kidney transplant (principal)
CPT/HCPCS: 36415; 80197; 87496; 87798

== ENCOUNTER 2021-02-25 08:13 | Outpatient (CLI) | payer MEDICARE, SELFPAY ==
[2021-02-25 09:07] LABS: Add Urine Microscopic? NO; Charge for UA Resulting for Rev
[2021-02-25 09:12] LABS: Basophils % 0.6 %; Eosinophils # 0.1 10^3/uL (0.0-0.8); Eosinophils % 1.1 %; Hematocrit 45.3 % (42.0-52.0); Hemoglobin 14.8 g/dL (11.7-16.6); Lymphocytes # 0.9 10^3/uL (0.8-4.8); Mean Corpuscular HGB Conc 32.7 g/dL (30.0-36.0); Mean Corpuscular Hemoglobin 30.4 pg (28.0-34.0); Mean Platelet Volume 9.7 fL (7.4-10.4); Monocytes % 15.1 %; Neutrophils # 4.38 10^3/uL (1.8-7.7); Nucleated Red Blood Cells % 0 %; Platelet Count 321 10^3/cmm (130-400); Red Blood Count 4.87 10^6/uL (4.1-5.3); Red Cell Distribution Width 12.3 % (12.1-15.1); White Blood Count 6.4 10^3/uL (4.0-10.0)
[2021-02-25 09:30] LABS: Albumin Level 4.2 g/dL (3.5-5.2); Anion Gap 12.9 (5-19); Blood Urea Nitrogen 16 mg/dL (6-20); Calcium 9.1 mg/dL (8.5-10.5); Carbon Dioxide 26 mmol/L (22-29); Chloride 101 mmol/L (98-107); Glomerular Filtration Rate 87.3 mL/min (90-130); Glucose 90 mg/dL (65-115); Magnesium 1.7 mg/dL (1.7-2.3); Phosphorus 2.6 mg/dL (2.5-4.5); Potassium 3.9 mmol/L (3.5-5.1); Sodium 136 mmol/L (136-145)
[2021-02-25 09:35] LABS: Bilirubin Urine Neg (Negative); Blood Urine Neg (Negative); Glucose Urine UA Norm (Normal); Ketones Urine Negative (Negative); Leukocyte Esterase Urine Negative (Negative); Nitrate Urine Negative (Negative); Protein Urine Neg (Negative); Urine Appearance Clear (CLEAR); Urine Color Yellow (Yellow); Urobilinogen Urine Norm (Negative); pH Urine 6 (5-7)
[2021-02-25 09:49] LABS: Creatinine Urine, Random 117 mg/dL (39-259)
[2021-02-25 10:04] LABS: Microalbum Creatinine Ratio Ur 9 mg/dL (0-20); Microalbumin Random Urine 1 ug/dL (0-20)
[2021-03-01 08:37] LABS: BK VIRUS DNA, QN PCR NO DNA DETECTED copies/mL; SOURCE PLASMA
[2021-03-01 10:16] LABS: Urine BK Virus DNA Quant NO DNA DETECTED copies/mL
[2021-03-01 14:42] LABS: CMV DNA By PCR <200 IU/mL; CMV DNA, QN PCR <2.30 Log IU/mL; SOURCE SERUM
== END 2021-02-25 08:14 | disposition home or self-care (01) ==
PROVIDERS: PCP Physician Assistant; Visit Provider Internal Medicine Nephrology
DX: Z48.22 Encounter for aftercare following kidney transplant (principal); Z79.899 Other long term (current) drug therapy
CPT/HCPCS: 36415; 80069; 80197; 81003; 82044; 83735; 85025; 87496; 87798; 87799

== ENCOUNTER 2021-06-03 08:40 | Outpatient (CLI) | payer MEDICARE, SELFPAY ==
[2021-06-03 09:20] LABS: Add Urine Microscopic? NO; Charge for UA Resulting for Rev
[2021-06-03 09:25] LABS: Hematocrit 46.3 % (42.0-52.0); Mean Corpuscular HGB Conc 32.4 g/dL (30.0-36.0); Mean Corpuscular Hemoglobin 30.9 pg (28.0-34.0); Mean Corpuscular Volume 95.3 fl (80-94); Mean Platelet Volume 9.4 fL (7.4-10.4); Platelet Count 304 10^3/cmm (130-400); Red Blood Count 4.86 10^6/uL (4.1-5.3); Red Cell Distribution Width 12.1 % (12.1-15.1); White Blood Count 7.8 10^3/uL (4.0-10.0)
[2021-06-03 09:25] LABS: Bilirubin Urine Neg (Negative); Blood Urine Neg (Negative); Glucose Urine UA Norm (Normal); Ketones Urine Negative (Negative); Leukocyte Esterase Urine Negative (Negative); Nitrate Urine Negative (Negative); Protein Urine Neg (Negative); Urine Appearance Clear (CLEAR); Urine Color Yellow (Yellow); Urobilinogen Urine Norm (Negative); pH Urine 5 (5-7)
[2021-06-03 09:32] LABS: Absolute Eosinophils 0.1 10^3/cmm (0.0-0.7); Absolute Segmented Neutrophil 5.9 10/cmm (1.6-7.1); Band Neutrophils Absolute 0.2 10^3/cmm (0.0-1.2); Eosinophils 2 %; Lymphocytes 9 %; Monocytes Absolute 0.9 10^3/cmm (0.1-0.6); Segmented Neutrophils 75 %; Total Cells Counted 100 (0-100)
[2021-06-03 09:38] LABS: Lymphocytes Absolute 0.7 10^3/cmm (1.2-3.4); Platelet Estimate Normal (Normal)
[2021-06-03 09:40] LABS: Creatinine Urine, Random 134 mg/dL (39-259)
[2021-06-03 09:57] LABS: Alanine Aminotransferase 19 U/L (0-41); Albumin Level 4.1 g/dL (3.5-5.2); Alkaline Phosphatase 52 IU/L (40-130); Aspartate Amino Transferase 15 U/L (0-40); Blood Urea Nitrogen 18 mg/dL (6-20); Carbon Dioxide 26 mmol/L (22-29); Chloride 103 mmol/L (98-107); Globulin 2.3 g/dL (1.3-4.6); Glucose 83 mg/dL (65-115); Osmolality Calculated 287 mOsm/kg (285-295); Sodium 138 mmol/L (136-145); Total Bilirubin 0.3 mg/dL (0.15-1.2); Total Protein 6.4 g/dL (6.6-8.7)
[2021-06-03 13:30] LABS: Microalbum Creatinine Ratio Ur 7 mg/dL (0-20); Microalbumin Random Urine < 1 ug/dL (0-20)
[2021-06-07 07:58] LABS: BK VIRUS DNA, QN PCR NO DNA DETECTED copies/mL; SOURCE PLASMA
== END 2021-06-03 08:41 | disposition home or self-care (01) ==
LOC: LAB 08:50
PROVIDERS: PCP Registered Nurse; Visit Provider Internal Medicine Nephrology
DX: Z94.0 Kidney transplant status (principal)
CPT/HCPCS: 80053; 80197; 81003; 82044; 85007; 85027; 87798

== ENCOUNTER 2021-06-08 07:29 | Outpatient (CLI) | payer MEDICARE, SELFPAY ==
--- NOTE | 2021-06-08 07:32 | MR_ITS ---
WS: [id number] MRI LUMBAR SPINE NONCONTRAST TECHNIQUE: Sagittal T1, T2 and STIR imaging. Axial T1 and T2 imaging. CLINICAL INFORMATION: LUMBAR PAIN COMPARISON: None. FINDINGS: Mild lumbar curve. No acute compression. Disc bulging worse at L2-3 and L3-4. L1-L2: Mild annular bulging. Narrowing of the right subarticular recess. Mild right foraminal narrowi ng. Mild facet arthropathy. L2-L3: Mild disc bulging with moderate central canal stenosis. Left pericentral protrusion impinges t he left subarticular recess. Impingement on the traversing left L3 nerve root. Small bilateral forami nal protrusions with mild to moderate bilateral foraminal narrowing. L3-L4: Mild annular bulging. Moderate central canal stenosis. Impingement left subarticular recess. M oderate bilateral foraminal narrowing with small foraminal protrusions. Mild facet arthropathy. Ligam ent flavum hypertrophy. L4-L5: Mild annular bulging with slight impingement on the traversing L5 nerve roots left greater jd n right. Mild facet arthropathy. Mild bilateral foraminal narrowing. L5-S1: No significant disc bulging. Spinal canal and foramen are patent. Mild facet arthropathy. Partially visualized atrophic kidneys bilaterally. Disc osteophyte complex at C4-5 with mild central canal stenosis. Small central protrusion at T6-7 wi th slight contact of the thoracic cord and mild central canal stenosis. Tiny central protrusions in t he lower thoracic spine at T10-T11 and T11-T12. MR/MR lumbar spine wo con* [id number] IMPRESSION: 1. Mild lumbar curve. No acute compression. 2. Moderate central canal stenosis L2-3 and L3-4. Mild to moderate central can al stenosis L4-5. 3. Mild to moderate bilateral foraminal narrowing L2-3 and L3-4 with bilateral foraminal protrusions. 4. Mild bilateral L4-5 foraminal narrowing. 5. Left pericentral protrusion L2-3 impinges the traversing left L3 nerve root in the subarticular recess. Impingement on the left L3-4 subarticular recess. 6. Mild central canal stenosis C4-5 on the steam engineer imaging. Small central protru tabitha at T6-7 with slight contact of the thoracic cord and mild central canal st enosis.
--- NOTE | 2021-06-08 07:32 | MR_ITS ---
WS: [id number] MRI LEFT SHOULDER NONCONTRAST TECHNIQUE: Sagittal T2, coronal T1, T2 and proton density imaging. Axial gradient PDE imaging. CLINICAL INFORMATION: LEFT SHOULDER INJURY COMPARISON: None. FINDINGS: Hypertrophic changes AC joint with mild edema. Mild downsloping acromion. Slight subacromial spurring . Slight impingement on the distal supraspinatus. Cystic degenerative changes at the greater tuberosi ty. High-grade insertional tear involving the distal supraspinatus. 1 cm of tendon retraction. High-g rade undersurface tear involving the dorsal infraspinatus extending into the teres minor with edema a nd fluid. Edema involving the supraspinatus and infraspinatus. Small joint effusion. Subscapularis ap pears intact. Normal biceps tendon in the bicipital groove. Degenerative fraying involving the glenoid labrum. Iris ps labral anchor appears grossly intact. MR/MR shoulder LT wo con* [id number] IMPRESSION: 1. Mild degenerative arthritis at the AC joint with mild edema and downsloping of the acromion. Slight subacromial spurring. 2. High-grade tears involving the distal supraspinatus at the insertion and un dersurface dorsal infraspinatus with edema extending into the teres minor. 1 cm tendon retraction distal supraspinatus 3. Normal subscapularis. 4. Small joint effusion with cystic degenerative changes at the greater tubero sity. 5. Degenerative fraying of the glenoid labrum. 6. Biceps tendon appears intact within the bicipital groove.
== END 2021-06-08 07:30 | disposition home or self-care (01) ==
LOC: RADSHAW 07:29
PROVIDERS: PCP Registered Nurse; Visit Provider Orthopaedic Surgery
DX: S34.109A Unspecified injury to unspecified level of lumbar spinal cord, initial encounter (principal); S49.92XA Unspecified injury of left shoulder and upper arm, initial encounter; X58.XXXA Exposure to other specified factors, initial encounter; M19.012 Primary osteoarthritis, left shoulder; M75.102 Unspecified rotator cuff tear or rupture of left shoulder, not specified as traumatic; M25.412 Effusion, left shoulder; M48.061 Spinal stenosis, lumbar region without neurogenic claudication; M48.02 Spinal stenosis, cervical region
CPT/HCPCS: 72148; 73221

== ENCOUNTER → 2021-06-16 10:33 | Outpatient (BNVA) | payer MEDICARE, SELFPAY | PROVIDERS: PCP Registered Nurse; Referring Provider Orthopaedic Surgery; Visit Provider Anesthesiology Pain Medicine | DX: M51.36 Other intervertebral disc degeneration, lumbar region (principal); M47.816 Spondylosis without myelopathy or radiculopathy, lumbar region; M46.00 Spinal enthesopathy, site unspecified; M79.604 Pain in right leg; M79.605 Pain in left leg; Z79.891 Long term (current) use of opiate analgesic | CPT/HCPCS: 99204 ==

== ENCOUNTER → 2021-06-30 13:25 | Outpatient (BNVA) | payer MEDICARE, SELFPAY | PROVIDERS: PCP Registered Nurse; Visit Provider Anesthesiology Pain Medicine | DX: M54.16 Radiculopathy, lumbar region (principal); Z79.891 Long term (current) use of opiate analgesic | CPT/HCPCS: 62323; J1040; J3490 ==

== ENCOUNTER → 2021-07-14 09:14 | Outpatient (BNVA) | payer MEDICARE, SELFPAY | PROVIDERS: PCP Registered Nurse; Visit Provider Anesthesiology Pain Medicine | DX: M51.36 Other intervertebral disc degeneration, lumbar region (principal); M47.816 Spondylosis without myelopathy or radiculopathy, lumbar region; M46.00 Spinal enthesopathy, site unspecified; M79.604 Pain in right leg; M79.605 Pain in left leg; Z79.891 Long term (current) use of opiate analgesic | CPT/HCPCS: 99214 ==

== ENCOUNTER → 2021-07-28 12:47 | Outpatient (BNVA) | payer MEDICARE, SELFPAY | PROVIDERS: PCP Registered Nurse; Visit Provider Anesthesiology Pain Medicine | DX: M47.816 Spondylosis without myelopathy or radiculopathy, lumbar region (principal); M54.16 Radiculopathy, lumbar region; Z79.891 Long term (current) use of opiate analgesic | CPT/HCPCS: 64493; 64494; 64495; J3490 ==

== ENCOUNTER → 2021-08-18 08:58 | Outpatient (BNVA) | payer MEDICARE, SELFPAY | PROVIDERS: PCP Registered Nurse; Visit Provider Anesthesiology Pain Medicine | DX: G89.29 Other chronic pain (principal); M51.36 Other intervertebral disc degeneration, lumbar region; M47.816 Spondylosis without myelopathy or radiculopathy, lumbar region; M46.00 Spinal enthesopathy, site unspecified; M79.604 Pain in right leg; M79.605 Pain in left leg; Z79.891 Long term (current) use of opiate analgesic | CPT/HCPCS: 99213; 99214 ==

== ENCOUNTER 2021-09-24 08:02 | Outpatient (RCR) | payer MEDICARE, SELFPAY | END 2021-10-19 23:59 | disposition home or self-care (01) | LOC: SPT 08:02 | PROVIDERS: Referring Provider Anesthesiology Pain Medicine; Visit Provider Anesthesiology Pain Medicine | DX: M54.50 Low back pain, unspecified (principal); G89.29 Other chronic pain | CPT/HCPCS: 97032; 97110; 97161 ==

== ENCOUNTER 2021-10-20 06:00 | Outpatient (RCR) | payer MEDICARE, SELFPAY | END 2021-11-16 23:59 | disposition home or self-care (01) | LOC: SPT 06:00 | PROVIDERS: Referring Provider Anesthesiology Pain Medicine; Visit Provider Anesthesiology Pain Medicine | DX: M54.50 Low back pain, unspecified (principal); G89.29 Other chronic pain | CPT/HCPCS: 97032; 97110 ==

== ENCOUNTER → 2021-11-10 09:09 | Outpatient (BNVA) | payer MEDICARE, SELFPAY | PROVIDERS: Visit Provider Anesthesiology Pain Medicine | DX: M48.062 Spinal stenosis, lumbar region with neurogenic claudication (principal); M51.36 Other intervertebral disc degeneration, lumbar region; M47.816 Spondylosis without myelopathy or radiculopathy, lumbar region; M46.00 Spinal enthesopathy, site unspecified; Z79.891 Long term (current) use of opiate analgesic; Z87.891 Personal history of nicotine dependence | CPT/HCPCS: 99213 ==

== ENCOUNTER 2021-11-17 06:00 | Outpatient (RCR) | payer MEDICARE, SELFPAY | END 2021-11-20 23:59 | disposition home or self-care (01) | LOC: SPT 06:00 | PROVIDERS: Referring Provider Anesthesiology Pain Medicine; Visit Provider Anesthesiology Pain Medicine | DX: M54.50 Low back pain, unspecified (principal); G89.29 Other chronic pain | CPT/HCPCS: 97110 ==

== ENCOUNTER → 2021-12-08 13:24 | Outpatient (BNVA) | payer MEDICARE, SELFPAY ==
--- NOTE | 2021-12-28 16:19 | P.ANESASSM_ITS ---
Pre-Anesthetic Assessment Height/Weight: Height 1.63 m Back surgery Familial anesthetic complications: None Was Beta Stephan taken within 24 hours: Yes Was Clonidine taken within 24 hours: N/A Social No alcohol and No tobacco Exam alert, oriented x 3, clear to auscultation bilaterally and regular rate & rhythm Airway Submandibular: within normal limits Cervical ROM: within normal limits Mallampati: Class II Dentition: chipped CV/HEM Hypertension Renal Tx, chronic steroids Musc/skel Lower Back Pain Anesthetic Plan ASA status: 3 Anesthesia: General Medications/Allergies Home Medications Medication Instructions Recorded Confirmed Last Taken Type amlodipine 5 mg tablet 5 mg PO DAILY 02/26/21 12/28/21 Unknown History carvedilol 25 mg tablet 12.5 mg PO BID 02/26/21 12/28/21 Unknown History tamsulosin 0.4 mg capsule 0.4 mg PO DAILY 02/26/21 12/28/21 Unknown History mycophenolate sodium 360 mg 720 mg PO BID 06/16/21 12/28/21 Unknown History tablet,delayed release prednisone 5 mg tablet 5 mg PO DAILY 06/16/21 12/28/21 Unknown History tacrolimus 1 mg capsule, 1 mg PO Q12H 06/16/21 12/28/21 Unknown History immediate-release acetaminophen 300 mg-codeine 30 mg 1 tab PO Q6H PRN 7 Days #20 tab 11/19/21 12/28/21 Unknown Rx tablet Allergies Allergy/AdvReac Type Severity Reaction Status Date / Time penicillin G Allergy unk Verified 12/28/21 11:08 [facility] Anesthesia Medical History Enlarged prostate HTN (hypertension) Surgical History History of kidney transplant History of kidney transplant Social History Smoking and tobacco status: former smoker History of recent travel: No Data Anesthesia Cardiac Studies: No Data to Display
== END ==
PROVIDERS: Visit Provider Orthopaedic Surgery
DX: M48.062 Spinal stenosis, lumbar region with neurogenic claudication (principal)
CPT/HCPCS: 72120

== ENCOUNTER 2022-01-01 06:47 | Day surgery (SDC) | payer MEDICARE, SELFPAY ==
[2021-12-28 11:14] VITALS: BMI 27.4
[2022-01-01] VITALS (9 sets, daily range): BP systolic 121–144; BP diastolic 77–109; PULSE 74–89; RESP 15–23; TEMP 36–37.1; O2SAT 93–98
--- NOTE | 2022-01-01 | XR_ITS ---
WS: [id number] Lumbar spine, C-arm fluoroscopy, 01/01/2022 Clinical Data: lumbar stenosis Comparison: None. Findings: Dr. Gil performed a lumbar decompression. XR/XR lumbar spine 1V port [id number] Impression: Lumbar decompression.
--- NOTE | 2022-01-01 | SCC_ITS ---
Procedure done: 1. L2/3 laminectomy with partial facetectomy 2. L3/4 laminectomy with partial facetectomy 3. L4/5 laminectomy with partial facetectomy 33.8 seconds of fluoroscopic guidance, for a cumulative dose of 8.85 mGy, was provided to Dr. Gil by the radiology department. C-arm images of the lumbar spine were saved for the patient's permanent record. [facility]
[2022-01-01] MEDS: sodium chloride 0.9% 1,000 ML 30 ML IV ×2 (07:18→10:57)
--- NOTE | 2022-01-01 07:20 | P.ANESUD_ITS ---
Pre-Anesthetic Update Pre-Anesthetic Assessment: Date of Surgery/Procedure: 01/01/22 Preop Ana Laura gnosis: Lumbar Stenosis w neurogenic claudication Proposed Procedure: Operation Date: 01/01/22 08:20 Proposed Procedures p Lumbar decompression L2/3,L3/4,L4/5 20252/09734P1/M48.062(Not Applicable) - Finn Gil, DO Any changes to Pre-Anesthetic Assessment?: No Last Intake: Intake Last Liquid Date 01/01/22 Last Liquid Time 06:00 Last Solid Date 12/31/21 Last Solid Time 19:00 Vitals: Temperature 98.7 F 01/01/22 07:06 Pulse Rate 74 01/01/22 07:06 Respiratory Rate 18 01/01/22 07:06 Blood Pressure 140/89 01/01/22 07:06 Blood Pressure Benita n 106 01/01/22 07:06 Pulse Oximetry 97 01/01/22 07:06 Oxygen Delivery Me thod 01/01/22 07:10 Exam: Pre-Anes Outpt Exam: alert, oriented x 3, clear to auscultation bilaterally and regular rate & rhythm Cardiac Studies: No Data to Display
[2022-01-01 07:36] LABS: Hemoglobin 14.9 g/dL (11.7-16.6)
[2022-01-01 08:21] LABS: Anion Gap 14.3 (5-19); Blood Urea Nitrogen 17 mg/dL (6-20); Calcium 8.8 mg/dL (8.5-10.5); Carbon Dioxide 24 mmol/L (22-29); Chloride 106 mmol/L (98-107); Glucose 109 mg/dL (65-115); Osmolality Calculated 292 mOsm/kg (285-295); Potassium 4.3 mmol/L (3.5-5.1); Sodium 140 mmol/L (136-145)
--- NOTE | 2022-01-01 08:32 | W.PM.OPSUD ---
Surgery/Procedure H&P Update DATE OF PROCEDURE: January 01, 2022 DATE H&P PERFORMED: 12/08/21 H&P UPDATE INFORMATION: I have reviewed H&P completed within last 30 days, I have examined patient prior to procedure and No changes to prior documentation PREOP DIAGNOSIS: Lumbar Stenosis w neurogenic claudication PLANNED PROCEDURE: Operation Date: 01/01/22 08:20 Proposed Procedures p Lumbar decompression L2/3,L3/4,L4/5 53002/[id number]/M48.062(Not Applicable) - Finn Gil DO
[2022-01-01] MEDS: clindamycin 900 MG/50 ML PREMIX 100 MG IV (09:01)
--- NOTE | 2022-01-01 11:05 | SUR.PHASEI ---
PATIENT INTO PACU. SIMPLE MASK ON, SAT AT 98. PATIENT HAS DRESSING TO BACK, DRY AND INTACT.
--- NOTE | 2022-01-01 11:20 | SUR.PHASEI ---
PATIENT AWAKE AND ABLE TO TAKE ICE CHIPS. STATES BACK IS UNCOMFORTABLE BUT DOES NOT WANT ANY MEDICATION AT THIS TIME.
--- NOTE | 2022-01-01 11:34 | P.OP_ITS ---
Operative Report Date of procedure: January 01, 2022 Pre-op diagnosis: Preop Diagnosis Lumbar Stenosis w neurogenic claudication Post-op diagnosis: same Procedure done: 1. L2/3 laminectomy with partial facetectomy 2. L3/4 laminectomy with partial facetectomy 3. L4/5 laminectomy with partial facetectomy Surgeon: Finn Gil Estimated blood loss (mL): 10 Procedure: 1. L2/3 laminectomy with partial facetectomy 2. L3/4 laminectomy with partial facetectomy 3. L4/5 laminectomy with partial facetectomy Patient is brought to the operative suite. After undergoing anesthesia they are placed in the prone position. All areas of impingement are well padded. Patient is then prepped and draped in the normal sterile fashion. A skin incision is made over the L2/3 level. This is confirmed under c-arm guidance. A series of dilators are passed and the tubular retractor is docked on the L2 lamina. A bovie is used to clear the soft tissue off the lamina and the L 2/3 facet joint. A high speed brunilda is then used to perform the laminect willem and take down the medial aspect of the L 2/3 facet joint. A kerrison rongeure was then used to take down the remaining lamina and smooth the edge of the laminectomy up to the point where the ligamentum flavum attaches. Attention was then brought to the medial aspect of the facet joint. The remaining medial aspect of the superior and inferior aspect of the facet joint were taken down with the kerrison from the pedicle of L2 to L 3. The facet joint had significant hypertrophy. Attention was then brought to the Ligamentum Flavum. The ligament was taken down from the lamina of L2 to L3 and out medially to the remaining facet joint. The ligament was thick. The dura was then exposed. The dura was in good repair. The L2 nerve was then traced with a curette out the L2/3 foramen and found to be adequately decompressed. The L3 nerve was traced with a curette around the L3 pedicle. The lateral recess was opened with a kerrison helping to further decompress the L3 nerve. Wound is then irrigated copiously with saline and surgiflo is used to stop any bleeding. The tubular retractor is removed and A skin incision is made over the L3/4 level. This is confirmed under c-arm guidance. A series of dilators are passed and the tubular retractor is docked on the L3 lamina. A bovie is used to clear the soft tissue off the lamina and the L 3/4 facet joint. A high speed brunilda is then used to perform the laminectomy and take down the medial aspect of the L 3/4 facet joint. A kerrison rongeure was then used to take down the remaining lamina and smooth the edge of the laminectomy up to the point where the ligamentum flavum attaches. Attention was then brought to the medial aspect of the facet joint. The remaining medial aspect of the superior and inferior aspect of the facet joint were taken down with the kerrison from the pedicle of L3 to L 4. The facet joint had significant hypertrophy. Attention was then brought to the Ligamentum Flavum. The ligament was taken down from the lamina of L3 to L4 and out medially to the remaining facet joint. The ligament was thick. The dura was then exposed. The dura was in good repair. The L3 nerve was then traced with a curette out the L3/4 foramen and found to be adequately decompressed. The L4 nerve was traced with a curette around the L4 pedicle. The lateral recess was opened with a kerrison helping to further decompress the L4 nerve. Wound is then irrigated copiously with saline and surgiflo is used to stop any bleeding. The tubular retractor is removed and A skin incision is made over the L4/5 level. This is confirmed under c-arm guidance. A series of dilators are passed and the tubular retractor is docked on the L4 lamina. A bovie is used to clear the soft tissue off the lamina and the L 4/5 facet joint. A high speed brunilda is then used to perform the laminectomy and take down the medial aspect of the L 4/5 facet joint. A kerrison rongeure was then used to take down the remaining lamina and smooth the edge of the laminectomy up to the point where the ligamentum flavum attaches. Attention was then brought to the medial aspect of the facet joint. The remaining medial aspect of the superior and inferior aspect of the facet joint were taken down with the kerrison from the pedicle of L4 to L 5. The facet joint had significant hypertrophy. Attention was then brought to the Ligamentum Flavum. The ligament was taken down from the lamina of L4 to L5 and out medially to the remaining facet joint. The ligament was thick. The dura was then exposed. The dura was in good repair. The L4 nerve was then traced with a curette out the L4/5 foramen and found to be adequately decompressed. The L5 nerve was traced with a curette around the L5 pedicle. The lateral recess was opened with a kerrison helping to further decompress the L5 nerve. Wound is then irrigated copiously with saline and surgiflo is used to stop any bleeding. The tubular retractor is removed and the wound is closed with vicryl and monocryl suture. Glue is then used to protect the wound. A sterile dressing is then placed. Patient was then placed in the supine position and transferred to the PACU in stable condition.
[2022-01-01] MEDS: HYDROcodone-acetaminophen 5-325 mg Tablet 1 TAB PO (12:10)
--- NOTE | 2022-01-01 13:05 | ANE.PACU2 ---
Inpatient post-anesthesia follow up: Airway intact: Yes Vital signs: Temperature 97.8 F Pulse Rate 81 Respiratory Rate 18 Blood Pressure 126/93 Pulse Oximetry 98 Oxygen Delivery Me thod Room Air Oxygen Flow Rate 8 Fraction of Inspir ed Oxygen Hydration adequate: Yes Nausea and vomiting: No Pain level: 4 Mental status: Baseline
== END 2022-01-01 12:36 | disposition home or self-care (01) ==
PROVIDERS: Anesthesiology; Visit Provider Orthopaedic Surgery
PROC: (CPT 63005; principal; 2022-01-01 08:20)
DX: M48.062 Spinal stenosis, lumbar region with neurogenic claudication (principal); Z79.52 Long term (current) use of systemic steroids; I10 Essential (primary) hypertension; Z87.891 Personal history of nicotine dependence
CPT/HCPCS: 63047; 63048 ×2; 36415; 72020; 76000; 80048; 85018; J1100; J2370; J2704; J2710; J3010; J3490; J7030

== ENCOUNTER 2022-01-03 04:25 | Emergency (ER) | payer MEDICARE, SELFPAY ==
[2022-01-03 04:26] VITALS: BP 156/106; PULSE 94; RESP 18; TEMP 37.1; O2SAT 95; BMI 27.6
--- NOTE | 2022-01-03 04:28 | CTR_ITS ---
PROCEDURE INFORMATION: Exam: CT Lumbar Spine Without Contrast Exam date and time: 01/03/2022 4:58 AM Age: 56 years old Clinical indication: Low back pain; Prior surgery; Surgery date: Post-operative (0-2 days); Surgery type: Spinal decompression TECHNIQUE: Imaging protocol: Computed tomography images of the lumbar spine without contrast. Radiation optimization: All CT scans at this facility use at least one of these dose optimization techniques: automated exposure control; mA and/or kV adjustment per patient size (includes targeted exams where dose is matched to clinical indication); or iterative reconstruction. COMPARISON: MR lumbar spine wo con* [id number] 06/08/2021 8:22 AM RADIATION DOSE METRICS: Total DLP (mGy-cm): 2064. FINDINGS: Vertebrae: Status post right laminectomies L2-L4. Discs/Spinal canal/Neural foramina: At L1-L2, there is broad-based posterior and annular disc bulging that contacts and mildly flattens the anterior aspect of the thecal sac. There is facet and ligamentum flavum hypertrophy that further encroaches on the spinal canal and neural foramina bilaterally. At L2-L3, broad-based posterior and annular disc bulging is seen that flattens the anterior aspect of the thecal sac. Again, there is moderate lumen flavum hypertrophy present on the left and bilateral facet hypertrophy present encroaching on the neural foramina bilaterally. At L3-L4, broad-based posterior disc bulging is seen flattening the anterior aspect of the thecal sac. Moderate facet and ligamentum flavum hypertrophy is seen on the left and moderate facet hypertrophy is seen on the right. At L4-L5, broad-based posterior disc bulging is again seen flatten the anterior aspect of the thecal sac. Moderate facet ligamentum flavum hypertrophy is again seen on the left and facet hypertrophy is seen on the right. Soft tissues: Punctate gas densities are seen in the subcutaneous fat and fascia the lower lumbar spine and within the paraspinous soft tissues on the right. Extra thecal gas densities are seen within the spinal canal extending from L1 to S1. CT/CT lumbar spine wo con* [id number] IMPRESSION: 1. Patient is status post right laminectomies L2-L4 . 2. Multilevel broad-based posterior disc bulging is present flattening the thecal sac at multiple levels from L2-L5. Ligament flavum hypertrophy and facet hypertrophy is seen at all levels as described above.
--- NOTE | 2022-01-03 04:31 | ED_ITS ---
HPI - Back Pain/Injury General: Chief Complaint: Back Pain/Injury Stated Complaint: Post Op Back Pain Time Seen by Provider: 01/03/22 04:28 Source: patient and EMS Mode of arrival: EMS Limitations: no limitations History of Present Illness: 56-year-old male who had a lumbar surgery for spinal stenosis 2 days ago. He states that he has been having increasing pain since the surgery and tonight has been having back spasms with pain shooting down both legs. Denies any fever denies any worsening improving factors. Rates his pain currently a 7 out of 10. Been taking his pain medicine. Associated symptoms: Deny abdominal pain, chills, dysuria, fever(s), nausea or vomiting Review of Systems Const: Denies: fever(s), chills, body aches or change in appetite Eyes: Denies: blurry vision or eye discomfort ENMT: Denies: throat pain or dental pain Card: Denies: chest pain Resp: Denies: dyspnea GI: Denies: abdominal pain, nausea, vomiting or diarrhea : Denies: dysuria Musc: Reports: back pain Skin/Breast: Denies: rash Neuro: Denies: headache(s) Psych: Denies: depression Manav/Lymph: Denies: easy bruising All/Imm: Denies: urticaria PFSH ED PFSH: Medical History Enlarged prostate HTN (hypertension) Surgical History History of kidney transplant History of kidney transplant Social History Smoking and tobacco status: former smoker History of recent travel: No Physical Exam Const: COMMON NORMALS: no acute distress, patient oriented x3 and healthy appearing HENMT: COMMON NORMALS: normocephalic and atraumatic HEAD & SCALP: normocephalic and atraumatic Eye: COMMON NORMALS: Equal, round and reactive pupils present and EOMs intact bilaterally PUPIL: Yes Equal, round and reactive pupils present Neck/C-Spine: COMMON NORMALS: full ROM and supple Chest: COMMONS NORMALS: normal inspection of the chest and normal palpation of entire chest wall Resp: COMMON NORMALS: normal respiratory effort, No retractions, No use of accessory muscles and clear to auscultation bilaterally AUSCULTATION: clear to auscultation bilaterally Cardio: COMMON NORMALS: regular rate, regular rhythm and No murmurs present (Cardio) RATE: regular rate RHYTHM: regular rhythm GI: COMMON NORMALS: Normal to inspection, nondistended, normoactive bowel sounds present, Soft to palpation, non-tender and no masses PALPATION: Yes Soft to palpation Back/Pelvis: OTHER: Tenderness along lumbar spine incisions clean dry and intact he is got sensation intact bilateral lower extremities no saddle anesthesia Extremity: COMMON NORMALS: normal to inspection and full ROM Neuro: COMMON NORMALS: patient oriented x3, moves all extremities and no focal motor deficits Psych: COMMON NORMALS: mental status grossly normal, Normal thought process present and cooperative THOUGHT PROCESS: Normal thought process present Skin: COMMON NORMALS: no rashes or lesions noted and no wounds GENERAL SKIN EXAM: no rashes or lesions noted Course Vital Signs: Vital signs: Vital Signs Temperature 98.8 F 01/03/22 04:26 Pulse Rate 85 01/03/22 05:05 Respiratory Rate 18 01/03/22 05:05 Blood Pressure 138/84 01/03/22 05:05 Pulse Oximetry 94 01/03/22 05:05 MDM - Back Pain/Injury Medical Decision Making Patient presents with back pain is likely postop pain and muscle spasms he is well-appearing here CT scans and normal he has no saddle anesthesia no signs of cord compression we will place him on Valium for spasms he is to follow-up with his surgeon and return if worsening he understands agrees to plan. Labs : 01/03/22 04:38 01/03/22 04:38 Radiology Impressions Lumbar Spine CT 01/03/22 04:28 IMPRESSION: 1. Patient is status post right laminectomies L2-L4 . 2. Multilevel broad-based posterior disc bulging is present flattening the thecal sac at multiple levels from L2-L5. Ligament flavum hypertrophy and facet hypertrophy is seen at all levels as described above. Laboratory Results WBC 15.3 10^3/uL (4.0-10.0) H 01/03/22 04:38 RBC 4.49 10^6/uL (4.1-5.3) 01/03/22 04:38 Hgb 13.6 g/dL (11.7-16.6) 01/03/22 04:38 Hct 42.1 % (42.0-52.0) 01/03/22 04:38 MCV 93.8 fl (80-94) 01/03/22 04:38 MCH 30.3 pg (28.0-34.0) 01/03/22 04:38 MCHC 32.3 g/dL (30.0-36.0) 01/03/22 04:38 RDW 12.3 % (12.1-15.1) 01/03/22 04:38 Plt Count 300 10^3/cmm (130-400) 01/03/22 04:38 MPV 9.4 fL (7.4-10.4) 01/03/22 04:38 Neut % (Auto) 82.3 % 01/03/22 04:38 Lymph % (Auto) 5.4 % 01/03/22 04:38 Pettis % (Auto) 11.7 % 01/03/22 04:38 Eos % (Auto) 0.1 % 01/03/22 04:38 Baso % (Auto) 0.1 % 01/03/22 04:38 Neut # (Auto) 12.62 10^3/uL (1.8-7.7) H 01/03/22 04:38 Lymph # (Auto) 0.8 10^3/uL (0.8-4.8) 01/03/22 04:38 Pettis # (Auto) 1.8 10^3/uL (0.2-0.9) H 01/03/22 04:38 Eos # (Auto) 0.0 10^3/uL (0.0-0.8) 01/03/22 04:38 Baso # (Auto) 0.0 10^3/uL (0.0-0.1) 01/03/22 04:38 Nucleated RBC % (auto) 0 % 01/03/22 04:38 Nucleated RBCs # 0.0 /100WBC 01/03/22 04:38 Sodium 139 mmol/L (136-145) 01/03/22 04:38 Potassium 3.8 mmol/L (3.5-5.1) 01/03/22 04:38 Chloride 104 mmol/L (98-107) 01/03/22 04:38 Carbon Dioxide 24 mmol/L (22-29) 01/03/22 04:38 Anion Gap 14.8 (5-19) 01/03/22 04:38 BUN 16 mg/dL (6-20) 01/03/22 04:38 Creatinine 0.9 mg/dL (0.7-1.2) 01/03/22 04:38 GFR Calculation 87.0 mL/min (90-130) L 01/03/22 04:38 Glucose 107 mg/dL (65-115) 01/03/22 04:38 Calculated Osmolality 290 mOsm/kg (285-295) 01/03/22 04:38 Calcium 8.6 mg/dL (8.5-10.5) 01/03/22 04:38 Discharge Plan Discharge Patient Disposition: Home Clinical Impression: Postoperative back pain Condition: Stable Prescriptions: New Valium 2 mg tablet 2 mg PO TID PRN (Reason: spasms) Qty: 14 0RF No Action amlodipine 5 mg tablet 5 mg PO DAILY 0RF carvedilol 25 mg tablet 12.5 mg PO BID 0RF Rx Instructions: must administer with a meal/food tamsulosin 0.4 mg capsule 0.4 mg PO DAILY 0RF tacrolimus 1 mg capsule 1 mg PO Q12H 0RF mycophenolate sodium 360 mg tablet,delayed release (DR/EC) 720 mg PO BID 0RF prednisone 5 mg tablet 5 mg PO DAILY 0RF hydrocodone-acetaminophen 5-325 mg tablet 1 - 2 tab PO .Q4-6H Qty: 40 0RF Discharge Orders: Discharge ED (Routine); Ordered 01/03/22 Ordered By: Megha Knutson Referrals: Finn Gil DO [Physician] - 1-3 days Discharge Diet: Advance as tolerated Discharge Activity: Resume usual activity Patient Instructions: Back Pain (ED), Opioid Safety Coding Level of Care Code ED Team Assembly Line Machine Operator for Chg Fwd Exam Comprehensive
[2022-01-03 04:34] VITALS: RESP 16; O2SAT 95
[2022-01-03] MEDS: dexamethasone 10 mg/mL INJ IVP (04:34)
[2022-01-03] MEDS: ondansetron 2 mg/ML SDV 2 mL 4 MG IVP (04:34)
[2022-01-03] MEDS: morphine 4 mg/mL SDV 1 mL IVP (04:34)
[2022-01-03 04:44] LABS: Basophils % 0.1 %; Eosinophils % 0.1 %; Hematocrit 42.1 % (42.0-52.0); Hemoglobin 13.6 g/dL (11.7-16.6); Lymphocytes # 0.8 10^3/uL (0.8-4.8); Lymphocytes % 5.4 %; Mean Corpuscular HGB Conc 32.3 g/dL (30.0-36.0); Mean Corpuscular Hemoglobin 30.3 pg (28.0-34.0); Mean Corpuscular Volume 93.8 fl (80-94); Mean Platelet Volume 9.4 fL (7.4-10.4); Monocytes # 1.8 10^3/uL (0.2-0.9); Monocytes % 11.7 %; Neutrophils # 12.62 10^3/uL (1.8-7.7); Neutrophils % 82.3 %; Nucleated Red Blood Cells % 0 %; Platelet Count 300 10^3/cmm (130-400); Red Blood Count 4.49 10^6/uL (4.1-5.3); Red Cell Distribution Width 12.3 % (12.1-15.1); White Blood Count 15.3 10^3/uL (4.0-10.0)
[2022-01-03 05:05] VITALS: BP 138/84; PULSE 85; RESP 18; O2SAT 94
[2022-01-03 05:05] LABS: Anion Gap 14.8 (5-19); Blood Urea Nitrogen 16 mg/dL (6-20); Calcium 8.6 mg/dL (8.5-10.5); Carbon Dioxide 24 mmol/L (22-29); Chloride 104 mmol/L (98-107); Glucose 107 mg/dL (65-115); Osmolality Calculated 290 mOsm/kg (285-295); Potassium 3.8 mmol/L (3.5-5.1); Sodium 139 mmol/L (136-145)
[2022-01-03 06:01] VITALS: BP 150/88; PULSE 87; RESP 18; O2SAT 96
== END 2022-01-03 05:43 | disposition home or self-care (01) ==
PROVIDERS: Emergency Provider Emergency Medicine
DX: G89.18 Other acute postprocedural pain (principal); M62.830 Muscle spasm of back; Z79.891 Long term (current) use of opiate analgesic; Z87.891 Personal history of nicotine dependence
CPT/HCPCS: 72131; 80048; 85025; 96374; 96375; 99284; J1100; J2270; J2405

== ENCOUNTER 2022-01-10 07:35 | Emergency (ER) | payer MEDICARE, SELFPAY ==
--- NOTE | 2022-01-10 07:53 | ED_ITS ---
HPI - Back Pain/Injury General: Chief Complaint: Back Pain/Injury Stated Complaint: post back surgery; back spasms Time Seen by Provider: 01/10/22 07:39 Source: patient Mode of arrival: wheelchair Limitations: no limitations History of Present Illness: Patient is a 56-year-old male who presents to ED today with a complaint of lower back pain. Patient is status post L2-L5 laminectomy with partial facetectomies performed by Dr. iGl on 01/01. Patient was seen in our facility on 01/03 secondary to back spasms. Patient states he was prescribed Valium. He states he has been taking Valium and hydrocodone at home with fairly good relief of his symptoms/discomfort however he states around 9 PM while getting into bed yesterday evening he began having worsening pain and discomfort. He states pain this morning was unbearable thus prompting his visit to the ED. He states his pain today feels similar to what he has been experiencing postoperatively-just describes worse in severity. He states pain seems to radiate down into his bilateral lower extremities. Follow-up appoint with Dr. Gil is scheduled for 01/14. MD elicited complaint: back pain Pertinent past history: back surgery Onset (ago): day(s) Timing: constant Severity: severe Pain scale (0-10): 10 Similar Symptoms Previously: Yes Location: lumbar spine Radiation: buttocks, left upper leg and right upper leg Exacerbating factors: movement, sitting upright and walking Relieving factors: none Associated symptoms: Reports difficulty walking (secondary to back pain); Deny abdominal pain, chills, fatigue or fever(s) Treatments prior to arrival: prescription analgesics Work related injury: No Review of Systems Const: Denies: fever(s), chills, body aches, fatigue or malaise Eyes: Denies: change in vision or blurry vision Card: Denies: chest pain Resp: Denies: dyspnea GI: Denies: abdominal pain Musc: Reports: back pain; Denies: neck pain, extremity pain, extremity swelling, joint pain, joint swelling or joint redness Skin/Breast: Denies: rash Neuro: Reports: difficulty walking (secondary to back pain); Denies: headache(s), numbness in extremities, weakness in extremities, sensory changes or lack of coordination PFSH ED PFSH: Medical History Enlarged prostate HTN (hypertension) Surgical History History of kidney transplant History of kidney transplant Social History Smoking and tobacco status: former smoker History of recent travel: No Physical Exam Const: COMMON NORMALS: patient oriented x3, no limitations, alert and well nourished GENERAL APPEARANCE: cooperative and in distress (secondary to back pain) ORIENTATION/CONSCIOUSNESS: Yes awake, Yes oriented to person, Yes oriented to place and Yes oriented to time HENMT: COMMON NORMALS: normocephalic and atraumatic HEAD & SCALP: normocephalic and atraumatic Neck/C-Spine: COMMON NORMALS: full ROM, no lymphadenopathy and no meningeal signs Resp: COMMON NORMALS: normal respiratory effort and clear to auscultation bilaterally AUSCULTATION: clear to auscultation bilaterally Cardio: COMMON NORMALS: regular rate and regular rhythm RATE: regular rate RHYTHM: regular rhythm Back/Pelvis: THORACIC SPINE/UPPER BACK: Yes normal to inspection, No thoracic spinal tenderness, No paraspinal muscle tenderness and No paraspinal muscle spasm LUMBAR SPINE/LOWER BACK: Yes ROM limited, Yes lumbar spinal tenderness, No paraspinal muscle tenderness and No paraspinal muscle spasm PELVIS: Yes buttocks normal OTHER: pts lumbar surgical incision looks clean and infection free; he has approximately 10 clustered vesicular lesions/some crusted across lower back extending onto L buttock that is consistent with a herpes zoster infection Extremity: COMMON NORMALS: normal to inspection and full ROM GENERAL: Yes normal exam except as noted Neuro: GLORIA COMA SCALE: document [facility] findings Gloria coma scale eye opening: Spontaneous Gloria coma scale verbal response: Orientated [place] coma scale motor response: Obey commands Gloria coma scale total score: 15 COMMON NORMALS: patient oriented x3, moves all extremities, no focal motor deficits and no sensory deficits noted SENSORIUM/ORIENTATION: Yes alert, Yes oriented to person, Yes oriented to place and Yes oriented to time MENINGEAL SIGNS: Yes no meningeal signs MOTOR EXAM: Normal motor muscle tone present throughout and Other motor observations present (strength testing not performed initially secondary to pt discomfort) DEEP TENDON REFLEXES: Right patellar reflex intensity grade: 2+ and Left patellar reflex intensity grade: 2+ Skin: RASHES: rashes noted (see above) Course Vital Signs: Vital signs: Vital Signs Temperature 98.2 F 01/10/22 08:43 Pulse Rate 86 01/10/22 08:43 Respiratory Rate 16 01/10/22 08:43 Blood Pressure 146/82 01/10/22 08:43 Pulse Oximetry 97 01/10/22 08:43 MDM - Back Pain/Injury Medical Decision Making Patient is here with back pain following laminectomy and facetectomies by Dr. Gil approximately 10 days ago. Patient was seen in our facility a few days following the surgery for similar symptoms and had negative CT imaging. Patient states his pain today is similar but describes more of a burning nerve pain. On exam he does have a herpes zoster rash extending onto his back and his left buttock. Patient's vital signs are stable. He is not having any acute neurologic deficits at this time. I do not feel repeat CT imaging is necessary. Patient is immunocompromised given his kidney transplant status. He will need prompt antiviral therapy for the zoster. Patient will be placed on valacyclovir, steroids, and lyrica. He can continue his hydrocodone as needed for pain. Recommend prompt follow-up with Dr. Gil-he does have a scheduled appointment on . Also needs to follow-up with his PCP. Signs and symptoms of rare complications such as myelitis, epidural abscess, viral meningitis were discussed with patient and should prompt an emergent return for re-evaluation. Discharge Plan Discharge Patient Disposition: Home Clinical Impression: Postoperative back pain Herpes zoster Qualifiers: Herpes zoster complications: without complications Qualified Code(s): B02.9 - Zoster without complications Condition: Stable Prescriptions: New Lyrica 75 mg capsule 75 mg PO BID Qty: 60 0RF prednisone 10 mg tablet 10 mg PO DAILY 7 Days Qty: 19 0RF Rx Instructions: 4 tabs on days 1-2, 3 tabs on days 3-4, 2 tabs on days 5-6, 1 tab on day 7 Valtrex 1 gram tablet 1,000 mg PO TID 7 Days Qty: 21 0RF No Action amlodipine 5 mg tablet 5 mg PO DAILY 0RF carvedilol 25 mg tablet 12.5 mg PO BID 0RF Rx Instructions: must administer with a meal/food tamsulosin 0.4 mg capsule 0.4 mg PO DAILY 0RF tacrolimus 1 mg capsule 1 mg PO Q12H 0RF mycophenolate sodium 360 mg tablet,delayed release (DR/EC) 720 mg PO BID 0RF prednisone 5 mg tablet 5 mg PO DAILY 0RF hydrocodone-acetaminophen 5-325 mg tablet 1 - 2 tab PO .Q4-6H Qty: 40 0RF Valium 2 mg tablet 2 mg PO TID PRN (Reason: spasms) Qty: 14 0RF Discharge Orders: Discharge ED (Routine); Ordered 01/10/22 Ordered By: Rina Giron Patient Instructions: Edith (ED) Activity Restrictions/Additional Instructions: As we discussed please contact Dr. Gil's office on Tuesday to see if they would like to see you sooner than your scheduled appointment on . If not please attend the appointment you are currently scheduled for. Follow-up with your primary care provider soon as possible so they can also see/evaluate you and recheck how you are doing with the shingles. Need to return to the emergency department for worsening or uncontrollable pain, fevers greater than 100.4, severe weakness to your lower extremities, severe headache, neck pain/stiffness, inability to ambulate, or any other concerns you may have. Coding Level of Care Code ED Bioinformatics Developer for Gopal Fwd Exam Comprehensive
[2022-01-10 08:01] VITALS: BP 146/82; PULSE 89; RESP 22; O2SAT 97; BMI 26.6
--- NOTE | 2022-01-10 08:06 | PC.NURSE ---
Patient states he had kidney transplant in 2019. He states he now has 3 kidneys, unknown why he needed transplant.
[2022-01-10 08:22] VITALS: RESP 16; O2SAT 95
[2022-01-10] MEDS: morphine 4 mg/mL SDV 1 mL IVP (08:22)
[2022-01-10] MEDS: dexamethasone 4 mg/mL INJ 8 MG IVP (08:23)
[2022-01-10] MEDS: orphenadrine 30 mg/mL Inj 2 mL 60 MG IVP (08:24)
[2022-01-10] MEDS: ketorolac 30 mg/mL INJ IVP (08:24)
[2022-01-10 08:43] VITALS: BP 146/82; PULSE 86; RESP 16; TEMP 36.8; O2SAT 97
[2022-01-10 10:29] VITALS: RESP 14; O2SAT 98
[2022-01-10] MEDS: HYDROmorphone 1 mg/mL INJ 1 mL IVP (10:29)
[2022-01-10 10:30] VITALS: BP 130/72; PULSE 87; RESP 14; TEMP 36.7; O2SAT 98
[2022-01-10 10:32] VITALS: BP 130/77; PULSE 87; RESP 14; TEMP 36.7; O2SAT 98
== END 2022-01-10 10:20 | disposition home or self-care (01) ==
PROVIDERS: Emergency Provider Physician Assistant
DX: G89.18 Other acute postprocedural pain (principal); B02.9 Zoster without complications; M54.50 Low back pain, unspecified; M79.605 Pain in left leg; M79.604 Pain in right leg; D84.9 Immunodeficiency, unspecified; I10 Essential (primary) hypertension; Z94.0 Kidney transplant status; Z87.891 Personal history of nicotine dependence
CPT/HCPCS: 96374; 96375; 99284; J1100; J1170; J1885; J2270; J2360

== ENCOUNTER → 2022-01-21 08:36 | Outpatient (BNVA) | payer MEDICARE, SELFPAY | PROVIDERS: Visit Provider Physician Assistant | DX: Z47.89 Encounter for other orthopedic aftercare (principal); Z98.890 Other specified postprocedural states | CPT/HCPCS: 99024; 99999 ==

== ENCOUNTER 2022-03-16 08:29 | Outpatient (CLI) | payer MEDICARE, SELFPAY ==
[2022-03-16 09:14] LABS: Add Urine Microscopic? NO; Charge for UA Resulting for Rev
[2022-03-16 09:26] LABS: Basophils % 0.7 %; Eosinophils # 0.1 10^3/uL (0.0-0.8); Eosinophils % 1.5 %; Hematocrit 45.8 % (42.0-52.0); Hemoglobin 14.8 g/dL (11.7-16.6); Lymphocytes % 15.9 %; Mean Corpuscular HGB Conc 32.3 g/dL (30.0-36.0); Mean Corpuscular Hemoglobin 30.4 pg (28.0-34.0); Mean Platelet Volume 9.6 fL (7.4-10.4); Monocytes # 0.9 10^3/uL (0.2-0.9); Monocytes % 15.1 %; Neutrophils # 4.05 10^3/uL (1.8-7.7); Neutrophils % 66.5 %; Nucleated Red Blood Cells % 0 %; Platelet Count 314 10^3/cmm (130-400); Red Blood Count 4.87 10^6/uL (4.1-5.3); Red Cell Distribution Width 12.3 % (12.1-15.1); White Blood Count 6.1 10^3/uL (4.0-10.0)
[2022-03-16 09:37] LABS: Albumin Level 4.2 g/dL (3.5-5.2); Anion Gap 12.9 (5-19); Blood Urea Nitrogen 17 mg/dL (6-20); Calcium 9.2 mg/dL (8.5-10.5); Carbon Dioxide 26 mmol/L (22-29); Chloride 102 mmol/L (98-107); Glucose 91 mg/dL (65-115); Magnesium 1.5 mg/dL (1.7-2.3); Phosphorus 3.1 mg/dL (2.5-4.5); Potassium 3.9 mmol/L (3.5-5.1); Sodium 137 mmol/L (136-145)
[2022-03-16 10:07] LABS: Bilirubin Urine Neg (Negative); Blood Urine Neg (Negative); Glucose Urine UA Norm (Normal); Ketones Urine Negative (Negative); Leukocyte Esterase Urine Negative (Negative); Nitrate Urine Negative (Negative); Protein Urine Neg (Negative); Urine Appearance Clear (CLEAR); Urine Color Yellow (Yellow); Urobilinogen Urine Norm (Negative); pH Urine 5 (5-7)
[2022-03-16 10:25] LABS: Urine Creatinine 136 mg/dL (39-259); Urine Protein Random 6 mg/dL
[2022-03-16 10:26] LABS: UPRO/UCREAT Ratio 0.04 mg/mg CR
[2022-03-19 12:19] LABS: CMV DNA By PCR NOT DETECTED; CMV DNA, QN PCR NOT DETECTED Log IU/mL; SOURCE WHOLE BLOOD
[2022-03-19 12:37] LABS: BK VIRUS DNA, QN PCR NOT DETECTED copies/mL; BK VIRUS DNA, QN RT PCR NOT DETECTED Log cps/mL; SOURCE PLASMA
[2022-03-20 05:03] LABS: BK Virus DNA Real Time PCR NOT DETECTED Log cps/mL; BK Virus DNA Real Time PCR NOT DETECTED copies/mL
== END 2022-03-16 08:30 | disposition home or self-care (01) ==
LOC: LAB 08:55
PROVIDERS: Visit Provider Student in an Organized Health Care Education/Training Program
DX: Z48.22 Encounter for aftercare following kidney transplant (principal); Z79.899 Other long term (current) drug therapy
CPT/HCPCS: 36415; 80069; 80197; 81003; 82570; 83735; 84156; 85025; 87496; 87798; 87799

== ENCOUNTER 2022-04-21 07:44 | Outpatient (CLI) | payer MEDICARE, SELFPAY ==
[2022-04-21 09:20] LABS: Anion Gap 12.8 (5-19); Blood Urea Nitrogen 17 mg/dL (6-20); Calcium 9.2 mg/dL (8.5-10.5); Carbon Dioxide 26 mmol/L (22-29); Chloride 104 mmol/L (98-107); Glomerular Filtration Rate 99.6 mL/min (90-130); Glucose 89 mg/dL (65-115); Phosphorus 2.9 mg/dL (2.5-4.5); Potassium 3.8 mmol/L (3.5-5.1); Sodium 139 mmol/L (136-145)
== END 2022-04-21 07:45 | disposition home or self-care (01) ==
LOC: LAB 07:48
PROVIDERS: Student in an Organized Health Care Education/Training Program; Visit Provider Internal Medicine Nephrology
DX: Z48.22 Encounter for aftercare following kidney transplant (principal); Z79.899 Other long term (current) drug therapy
CPT/HCPCS: 36415; 80069; 80197

== ENCOUNTER 2022-06-25 07:53 | Outpatient (CLI) | payer MEDICARE, SELFPAY ==
[2022-06-25 09:36] LABS: Basophils % 0.5 %; Eosinophils # 0.1 10^3/uL (0.0-0.8); Hematocrit 44.1 % (42.0-52.0); Hemoglobin 14.8 g/dL (11.7-16.6); Lymphocytes % 13.6 %; Mean Corpuscular HGB Conc 33.6 g/dL (30.0-36.0); Mean Corpuscular Hemoglobin 30.8 pg (28.0-34.0); Mean Corpuscular Volume 91.7 fl (80-94); Mean Platelet Volume 9.9 fL (7.4-10.4); Monocytes # 1.1 10^3/uL (0.2-0.9); Neutrophils % 70.6 %; Nucleated Red Blood Cells % 0 %; Platelet Count 324 10^3/cmm (130-400); Red Blood Count 4.81 10^6/uL (4.1-5.3); Red Cell Distribution Width 12.6 % (12.1-15.1); White Blood Count 7.7 10^3/uL (4.0-10.0)
[2022-06-25 09:51] LABS: Urine Appearance Clear (CLEAR); Urine Color Yellow (Yellow); pH Urine 5 (5-7)
[2022-06-25 09:52] LABS: Bilirubin Urine Neg (Negative); Blood Urine Neg (Negative); Glucose Urine UA Norm (Normal); Ketones Urine Negative (Negative); Leukocyte Esterase Urine Negative (Negative); Nitrate Urine Negative (Negative); Protein Urine Neg (Negative); Urobilinogen Urine Neg (Negative)
[2022-06-25 10:07] LABS: Urine Creatinine 144 mg/dL (39-259)
[2022-06-25 10:09] LABS: Anion Gap 13.5 (5-19); Blood Urea Nitrogen 15 mg/dL (6-20); Calcium 8.9 mg/dL (8.5-10.5); Carbon Dioxide 24 mmol/L (22-29); Chloride 103 mmol/L (98-107); Glomerular Filtration Rate 99.3 mL/min (90-130); Glucose 86 mg/dL (65-115); Magnesium 1.6 mg/dL (1.7-2.3); Phosphorus 2.9 mg/dL (2.5-4.5); Potassium 3.5 mmol/L (3.5-5.1); Sodium 137 mmol/L (136-145)
[2022-06-25 10:12] LABS: Total Protein, Random Urine 10.1 mg/dL (0.0-20.0)
[2022-06-25 10:18] LABS: Mucus Urine 1+ /hpf
[2022-06-29 00:47] LABS: CMV DNA By PCR NOT DETECTED; CMV DNA, QN PCR NOT DETECTED Log IU/mL; SOURCE WHOLE BLOOD
[2022-06-29 08:33] LABS: BK VIRUS DNA, QN PCR NOT DETECTED copies/mL; BK VIRUS DNA, QN RT PCR NOT DETECTED Log cps/mL; SOURCE BLOOD
[2022-06-29 17:07] LABS: BK Virus DNA Real Time PCR NOT DETECTED Log cps/mL; BK Virus DNA Real Time PCR NOT DETECTED copies/mL
== END 2022-06-25 07:54 | disposition home or self-care (01) ==
LOC: LAB 07:56
PROVIDERS: Visit Provider Internal Medicine Nephrology
DX: Z48.22 Encounter for aftercare following kidney transplant (principal); Z79.899 Other long term (current) drug therapy; Z94.0 Kidney transplant status
CPT/HCPCS: 36415; 80069; 80197; 81001; 82570; 83735; 84156; 85025; 87496; 87798; 87799